=== PATIENT | female | born 1985 | race Caucasian/White ===

== ENCOUNTER 2023-10-01 12:48 | Outpatient (OUT) | payer OTHER, SELFPAY ==
--- NOTE | 2023-10-01 13:00 | MM_ITS ---
Patient Name: PRETTY ALANIZ MR#: [id number] : 1985 Exam Date: 10/01/2023 Ordering Doctor: Non-Staff Physician RADIOLOGY REPORT PROCEDURE: MM TOMOSYNTHESIS SCREENING BI COMPARISON: None. INDICATIONS: Screening Calculator Name NCI Breast Cancer Risk Assessment Tool 5 Year Breast Cancer Risk 0.50% Lifetime Breast Cancer Risk 9.00% Personal Breast Cancer No Personal Ovarian Cancer No Treatments None Family Cancers Mother with uterine cancer at age 55; Grandfather-maternal with colon cancer at age 70. LOCATION: [facility] BREAST COMPOSITION: Scattered areas fibroglandular density. FINDINGS: DIAGNOSTIC CATEGORY 1--NEGATIVE. Scattered benign-appearing calcifications are present. RIGHT BREAST: No significant suspicious finding. LEFT BREAST: No significant suspicious finding. RECOMMENDATIONS: ROUTINE MAMMOGRAM AND CLINICAL EVALUATION IN 12 MONTHS. PLEASE NOTE: A NORMAL MAMMOGRAM DOES NOT EXCLUDE THE POSSIBILITY OF BREAST CANCER. A CLINICALLY SUSPICIOUS PALPABLE LUMP SHOULD BE BIOPSIED. Dictated by: Jason Swan MD on 10/02/2023 at 09:19 Approved by: Jason Swan MD on 10/02/2023 at 09:21
== END 2023-10-01 12:49 | disposition home or self-care (01) ==
LOC: MAMMO 12:52
PROVIDERS: PCP Family Medicine
DX: Z12.31 Encounter for screening mammogram for malignant neoplasm of breast (principal); Z80.8 Family history of malignant neoplasm of other organs or systems; Z80.0 Family history of malignant neoplasm of digestive organs
CPT/HCPCS: 77063; 77067

== ENCOUNTER 2024-12-01 08:32 | Outpatient (OUT) | payer OTHER, SELFPAY ==
--- NOTE | 2024-12-01 08:42 | MM_ITS ---
Patient Name: PRETTY ALANIZ MR#: [id number] : 1985 Exam Date: 12/01/2024 Ordering Doctor: MRS. Laurie Mccormick NP RADIOLOGY REPORT PROCEDURE: MM TOMOSYNTHESIS SCREENING BI COMPARISON: MM TOMOSYNTHESIS SCREENING BI, 10/01/2023. INDICATIONS: Screening Calculator Name NCI Breast Cancer Risk Assessment Tool 5 Year Breast Cancer Risk 0.50% Lifetime Breast Cancer Risk 9.00% Personal Breast Cancer No Personal Ovarian Cancer No Treatments None Family Cancers Mother with uterine cancer at age 55; Grandfather-maternal with colon cancer at age 70. LOCATION: [facility] BREAST COMPOSITION: There are scattered areas of fibroglandular density. FINDINGS: DIAGNOSTIC CATEGORY 1--NEGATIVE. LEFT BREAST: No significant suspicious finding. RIGHT BREAST: No significant suspicious finding. RECOMMENDATIONS: ROUTINE MAMMOGRAM AND CLINICAL EVALUATION IN 12 MONTHS. PLEASE NOTE: A NORMAL MAMMOGRAM DOES NOT EXCLUDE THE POSSIBILITY OF BREAST CANCER. A CLINICALLY SUSPICIOUS PALPABLE LUMP SHOULD BE BIOPSIED. Dictated by: Bubba Harrington DO on 12/01/2024 at 15:39 Approved by: Bubba Harrington DO on 12/01/2024 at 15:42
== END 2024-12-01 08:33 | disposition home or self-care (01) ==
LOC: MAMMO 08:33
PROVIDERS: PCP Family Medicine; Visit Provider Nurse Practitioner Women's Health
DX: Z12.31 Encounter for screening mammogram for malignant neoplasm of breast (principal); Z80.0 Family history of malignant neoplasm of digestive organs; Z80.8 Family history of malignant neoplasm of other organs or systems
CPT/HCPCS: 77063; 77067

== ENCOUNTER 2025-07-28 06:49 | Outpatient (OUT) | payer OTHER, SELFPAY ==
--- OUTSIDE RECORDS SUMMARY | 2019-09-18 05:30 | XMS_ITS | Continuity of Care Document ---
Author Organization [facility] Address [address] [place] [address] Phone Care Team Providers Care Resaw Feeder Name Role Phone Echo López Unavailabl e Allergies, Adverse Reactions, Alerts Substance Reaction Status Criticality No Known Allergies Active No Inform ation Medications Medication Instructions Dosage Effective Dates (start - stop) Status Comments hydroxyzine HCl 25 mg tablet take 1 tablet by oral route 3 times every day as needed for itching - Active prednisone 10 mg tablet take 5 tabs QD x2days, then 4 tabs QD x2days, then 3 tabs QD x2days, then 2 tabs QD x2days, then 1 tab QD x2 days - Active Procedures Procedure Date OFFICE/OUTPATIENT VISIT, EST BX/CURETT OF CERVIX W/SCOPE OFFICE/OUTPATIENT VISIT, EST [facility] SPECIMEN HANDLING (GC/CHLAMYDIA) Aug OFFICE/OUTPATIENT VISIT, EST PREV VISIT, EST, AGE 18-39 Advance Directives Directive Yes / No Effective Date File Name No Information Encounters Encounter Description Practice Location Reason(s) For Visit Diagnoses Date Provider Providers Copied on Encounter OFFICE/OUTPATI ENT VISIT, EST [facility], [address], [place], [id number], [place] tel:[phone] ECJFS Rash (chief complaint) Body mass index (BMI) 29.0-29.9, adultRash Zarina Dodge. [address], [place], [id number], [place]. tel:[phone] [facility], [address], [place], [id number], [place] tel:[phone] [facility] No Information Justyn ISAAC Fito. [address], [place], [id number], [place]. tel:[phone] OFFICE/OUTPATI ENT VISIT, EST [facility], [address], [place], [id number], [place] tel:[phone] [facility] No Information Lamp Jodie. [address], [place], [id number], [place]. tel:[phone] OFFICE/OUTPATI ENT VISIT, EST [facility], [address], [place], [id number], [place] tel:[phone] [facility] No Information Visci DO Payton. [address], [place], [id number], [place]. tel:[phone] PREV VISIT, EST, AGE 18-39 [facility], [address], [place], [id number], [place] tel:[phone] [facility] No Information Lamp Jodie. [address], [place], [id number], [place]. tel:[phone] Family History Family Member Type Diagnosis Age At Onset Sister Problem (finding) depression Father Problem (finding) Alive and well Sister Problem (finding) Alive and well Mother Problem (finding) Alive and well Mother Problem (finding) Arthritis Brother Problem (finding) Alive and well Mother Problem (finding) malignant neoplasm of u terus Payers Payer name Insurance type Covered libertarian ID Authoriza tion(s) No Information Social History Type Description Quantity Date Captured Comments Alcohol Use Details beer Caffeine Use Details coffee 2 cups per day Tobacco Use Status Current non-smoker 20 Smoking Status Never smoker Non-Smoking Tobacco Use Details : No Details Available : No Details Available [id number] SexFemaleSexual OrientationStraight or [id number] Gender [id number] Vital Signs Date / Time: Height Weight BMI Pulse Rate Blood Pressure Temperature Respiratory Rate Body Surface Area Head Circumference Head Circ. Percentile Wt./[place]. Percentile BMI percentile Pulse Ox Inhaled Ox 10:30 AM 63.00 in 76.204 kg (168.00 lbs) 29.7 6 kg/m eter (2) 84 /min 118/78 mm[Hg] Chief Complaint And Reason For Visit From encounter dated '09/18/2019 10:30'. Rash (chief complaint). Description: The patient presents for Rash. Additional information: Patienthere for rash. Patient took Benadryl and hydrocortisone. Patient says rash started on chest and neck. Itching since Aug. New years it turned to rash. Patient says she sometimes feels foggy. No other issues at this time.Dior Laneoted above. Patient reports wearing a cheaper necklace" that her kids got her years ago when she noted the rash started. She stopped wearing the necklace, but then started wearing again over her shirt. Denies any new medication including otc, herbal. Reason For Referral Reason For Referral No Information Plan Of Treatment Date Type Action Status Goal Tdap. Due on due Goal RLP. Due on due Goal Influenza vaccine. Due on due Goal Depression screening. Due on due Goal Dietary management education , guidance, and counseling completed History Of Present Illness Encounter Date Complaint History Of Prese nt Illness Rash The patient pres ents for Rash. Additional information: Patient here for rash. Patient took Benadryl and hydrocortisone. Patient says rash started on chest and neck. Itching since Aug. New years it turned to rash. Patient says she sometimes feels foggy. No other issues at this time.Abigail Lane above. Patient reports wearing a cheaper necklace that her kids got her years ago when she noted the rash started. She stopped wearing the necklace, but then started wearing again over her shirt. Denies any new medication including otc, herbal. Functional Status Date Functional Assessmen t No Information Instructions Date Instruction Additional Infor sommer Dietary management e ducation, guidance, and counseling Related to Body mass index (BMI) 29.0-29.9, adult Giving encouragement to exercise Related to Body mass index (BMI) 29.0-29.9, adult Assessments Type Assessment Date assessment Body mass index (BMI) 29.0-29.9, adult assessment Rash impression Patient reports ongo ing/worsening rash across chestHas tried otc hydrocortisone cream, aloe lotion and benadryl with minimal reliefNo new creams, lotions, animal exposures, foodsOnly across chest, extending now up to the neck areaShe mentions a necklace that she was wearing when it first startedPrednisone taper and hydroxyzineRTC if unchanged or returns after 3 weeksPatient verbalizes understanding and agrees with treatment plan. Mental Status Date Cognitive Assessment Orientation - [place] ed to time, place, person, situation. Patient Care Teams Name Effective Dates (start - stop) Status Members No Information
--- OUTSIDE RECORDS SUMMARY | 2025-07-22 16:20 | XMS_ITS | Encounter Summary ---
Author Organization [facility] Address [address] [place] [address] Care Team Providers Care Legal Manager Name Role Phone Chucho Castle DO Primary Care Provider [phone] Laurie Mccormick NP Unavailable [phone] Reason for Referral * Consultation (Routine) - AuthorizedSpecialtyDiagnoses / ProceduresReferred By ContactReferred To ContactCardiology Diagnoses Symptomatic PVCs Palpitations Procedures MO OFFICE/OUTPATIENT [facility] 60 MINUTES Jillian Waller NP [address] [place] [address] Phone: tel: fax: Radha Arboleda MD [address] [facility] [address] [place] [address] Phone: tel: fax: Referral IDStatusReasonStart DateExpiration DateVisits RequestedVisits [id number] Specialty Services Required / Reason for Visit * ReasonCommentsFollow-up Encounter Details DateTypeDepartmentCare Team (Latest Contact Info)Elguzpvfjae09/05/2025 4:20 PM ESTOffice Visit [facility] [address] [place] [address] Jillian Waller NP [address] [place], [place] [phone] Symptomatic PVCs (Primary Dx); Palpitations; Lipid screening; Encounter for screening examination for impaired glucose regulation and diabetes mellitus; Thyroid disorder screen Social History Tobacco UseTypesPacks/DayYears UsedDateSmoking Tobacco: FormerCigarettesQuit: 01/31/2001Smokeless Tobacco: Never Tobacco Cessation:Counseling Given: Yes Alcohol UseStandard Drinks/WeekCommentsYes2 (1 standard drink = 0.6 oz pure alcohol)Humiliation, Afraid, Rape, and Kick questionnaireAnswerDate Recorded Within the last year, have you been afraid of your partner or ex-partner?No 05/22/2023Within the last year, have you been humiliated or emotionally abused in other ways by your partner or ex-partner?No05/22/2023Within the last year, have you been kicked, hit, slapped, or otherwise physically hurt by your partner or ex-partner?No05/22/2023Within the last year, have you been raped or forced to have any kind of sexual activity by your partner or ex-partner?No05/22/2023 Social Connection and Isolation PanelAnswerDate RecordedIn a typical week, how many times do you talk on the phone with family, friends, or neighbors?Once a week05/22/2023How often do you get together with friends or relatives?Once a week05/22/2023How often do you attend sabianism or anabaptism services?1 to 4 times per year05/22/2023o you belong to any clubs or organizations such as sabianism groups, unions, fraternal or athletic groups, or school groups?Yes05/22/2023How often do you attend meetings of the clubs or organizations you belong to?1 to 4 times per year05/22/2023re you , , , , never , or living with a partner?Tkgjyxd2105/22/2023UDIT-CAnswerDate RecordedQ1: How often do you have a drink containing alcohol?2-4 times a month11/05/2024Q2: How many drinks containing alcohol do you have on a typical day when you are drinking?1 or Q3: How often do you have six or more drinks on one occasion?Never11/05/2024Overall Financial Resource Strain (CARDIA)AnswerDate RecordedHow hard is it for you to pay for the very basics like food, housing, medical care, and heating?Not very hard05/22/2023HQ-2AnswerDate RecordedPatient Health Questionnaire-2 Ydyej26009/21/2024[facility] [place] [facility] - Occupational Stress QuestionnaireAnswerDate RecordedDo you feel stress - tense, restless, nervous, or anxious, or unable to sleep at night because your mind is troubled all the time - these days?To some qulmhb7005/22/2023Exercise Vital SignAnswerDate RecordedOn average, how many days per week do you engage in moderate to strenuous exercise (like a brisk walk)?5 days05/22/2023On average, how many minutes do you engage in exercise at this level?40 min05/22/2023Hunger Vital SignAnswerDate RecordedWithin the past 12 months, you worried that your food would run out before you got the money to buymore.Never true05/22/2023 Within the past 12 months, the food you bought just didn't last and you didn't have money to get more.Never true05/22/2023RAPARE - TransportationAnswerDate RecordedIn the past 12 months, has lack of transportation kept you from medical appointments or from getting medications?No05/22/2023In the past 12 months, has lack of transportation kept you from meetings, work, or from getting things needed for daily living?No05/22/2023Housing Stability Vital SignAnswerDate RecordedIn the last 12 months, was there a time when you were not able to pay the mortgage or rent on time?No05/22/2023In the last 12 months, how many places have you lived?In the last 12 months, was there a time when you did not have a steady place to sleep or slept in ashelter (including now)?No 05/22/2023CommentsNoSex and Gender InformationValueDate RecordedSex Assigned at TmjdaOqkihs32/23/2023 10:41 AM EDTLegal HebAdrzcp37/15/2023 7:17 PM EDTGender QungegobKqdlld11/23/2023 10:41 AM EDTSexual OrientationStraight 05/09/2023 10:41 AM EDTdocumented as of this encounter Last Filed Vital Signs Vital SignReadingTime TakenCommentsBlood Swfqzrkv021/6807/22/2025 4:15 PM EST Koalg845107/22/2025 4:15 PM NMFFqqdtdfermp89.5 ??C (97.7 ??F)07/22/2025 4:15 PM ESTRespiratory Rate--Oxygen Votdsintaw09%07/22/2025 4:15 PM ESTInhaled Oxygen Concentration--Qcsegw98.7 kg (178 lb)07/22/2025 4:15 PM HKGJgomxr905.5 cm (5' 2 )07/22/2025 4:15 PM ESTBody Mass Index32.56109/21/2024 4:15 PM ESTdocumented in this encounter Functional Status * Over the past 2 weeks, how often have you been bothered by any of the following problems?QuestionAnswerDate of AssessmentAuthorLittle interest or pleasure in doing thingsNot at all07/22/2025 4:20 PM Tangela Smith MA Feeling down, depressed, or hopelessNot at all07/22/2025 4:20 PM Tangela Smith MAPatient Health Questionnaire-2 Custv08809/21/2024 4:20 PM Tangela Smith MA documented as of this encounter Progress Notes * Jillian Waller NP - 07/22/2025 4:20 PM EST Images from the original note were not included. SUBJECTIVE: Sahara Pascual is a 40 y.o. female presents with chief complaint of Follow-up Pt presents to discuss her holter monitor results. States she continues to have palpitations. Not sure if it is related to anxiety. States when she tracks her palpitation she feels like it stresses her and she has more. Has limited caffiene from diet and made dietary changes without much relief. Review of Systems: Review of Systems All other systems reviewed and are negative. Current Medications: Medications Ordered Prior to Encounter[1] I have reviewed and reconciled the history and medication list with the patient today. Problem List: Problem List[2] Past Medical History: Medical History[3] Family History: Family History[4] Allergies: Allergies[5] Surgical History: Surgical History[6] Social History: Social Drivers of Health Tobacco Use: Medium Risk (07/22/2025) Patient History Smoking Tobacco Use: Former Smokeless Tobacco Use: Never Passive Exposure: Not on file Alcohol Use: Not At Risk (11/05/2024) AUDIT-C Frequency of Alcohol Consumption: 2-4 times a month Average Number of Drinks: 1 or 2 Frequency of Binge Drinking: Never Financial Resource Strain: Low Risk (05/22/2023) Overall Financial Resource Strain (CARDIA) Difficulty of Paying Living Expenses: Not very hard Food Insecurity: No Food Insecurity (05/22/2023) Hunger Vital Sign Worried About Running Out of Food in the Last Year: Never true Ran Out of Food in the Last Year: Never true Transportation Needs: No Transportation Needs (05/22/2023) PRAPARE - Transportation Lack of Transportation (Medical): No Lack of Transportation (Non-Medical): No Physical Activity: Sufficiently Active (05/22/2023) Exercise Vital Sign Days of Exercise per Week: 5 days Minutes of Exercise per Session: 40 min Stress: Stress Concern Present (05/22/2023) [place] [employer] - Occupational Stress Questionnaire Feeling of Stress : To some extent Social Connections: Moderately Integrated (05/22/2023) Social Connection and Isolation Panel Frequency of Communication with Friends and Family: Once a week Frequency of Social Gatherings with Friends and Family: Once a week Attends Jainism Services: 1 to 4 times per year Active Member of Clubs or Organizations: Yes Attends Club or Organization Meetings: 1 to 4 times per year Marital Status: Intimate Partner Violence: Not At Risk (05/22/2023) Humiliation, Afraid, Rape, and Kick questionnaire Fear of Current or Ex-Partner: No Emotionally Abused: No Physically Abused: No Sexually Abused: No Depression: Not at risk (07/22/2025) PHQ-2 PHQ-2 Score: 0 Housing Stability: Low Risk (05/22/2023) Housing Stability Vital Sign Unable to Pay for Housing in the Last Year: No Number of Places Lived in the Last Year: 1 Unstable Housing in the Last Year: No Health Literacy: Not on file OBJECTIVE: Visit Vitals BP 112/68 Pulse 71 Temp 97.7 ??F Ht 5' 2 Wt 178 lb SpO2 99% BMI 32.56 kg/m?? OB Status Having periods Smoking Status Former BSA 1.88 m?? Physical Exam Constitutional: Appearance: Normal appearance. HENT: Head: Normocephalic and atraumatic. Eyes: Extraocular Movements: Extraocular movements intact. Neck: Vascular: No carotid bruit. Cardiovascular: Rate and Rhythm: Normal rate and regular rhythm. Heart sounds: Normal heart sounds. Pulmonary: Effort: Pulmonary effort is normal. Breath sounds: Normal breath sounds. No wheezing, rhonchi or rales. Musculoskeletal: Cervical back: Neck supple. Lymphadenopathy: Cervical: No cervical adenopathy. Skin: General: Skin is warm and dry. Neurological: General: No focal deficit present. Mental Status: She is alert and oriented to person, place, and time. Psychiatric: Mood and Affect: Mood normal. Behavior: Behavior normal. Judgment: Judgment normal. No results found for this or any previous visit (from the past 4 weeks). ASSESSMENT AND PLAN: Assessment/Plan Diagnoses and all orders for this visit: Symptomatic PVCs - Lipid panel - CBC - Comprehensive metabolic panel - Tsh+free t4 - atenolol (Tenormin) 25 MG tablet; Take 1 tablet (25 mg) by mouth Daily - Ambulatory referral to Cardiology; Future Holter reviewed with pt in detail. Referral sent, pt should get a phone call within 1 week. Also can check mychart. Advised to call the office if they have not heard anything within 1 week. New meds as directed. Labs ordered and will call with the results. Palpitations - Lipid panel - CBC - Comprehensive metabolic panel - Tsh+free t4 - atenolol (Tenormin) 25 MG tablet; Take 1 tablet (25 mg) by mouth Daily - Ambulatory referral to Cardiology; Future Lipid screening - Lipid panel - CBC - Comprehensive metabolic panel - Tsh+free t4 Encounter for screening examination for impaired glucose regulation and diabetes mellitus - Lipid panel - CBC - Comprehensive metabolic panel - Tsh+free t4 Thyroid disorder screen - Tsh+free t4 [1] Current Outpatient Medications on File Prior to Visit Medication Sig Dispense Refill pantoprazole (ProtoNix) 40 MG EC tablet Take 1 tablet (40 mg) by mouth Daily Do not crush, chew, orsplit. 30 tablet 5 No current facility-administered medications on file prior to visit. [2] Patient Active Problem List Diagnosis Anxiety [3] Past Medical History: Diagnosis Date Abnormal Pap smear of cervix 08/2022 Anxiety 08/2021 Headache 04/25/23 [4] Family History Problem Relation Name Age of Onset Arthritis Mother Angela Asthma Mother Angela Rheum arthritis Mother Angela Cervical cancer Mother Angela COPD Father Ildefonso Depression Sister Isadora Arthritis Mother's Sister Guillermina Arthritis Mother's Brother Ildefonso Depression Maternal Grandmother Jossy Cancer Maternal Grandfather Richard Diabetes Paternal Grandmother Dinora [5] No Known Allergies [6] Past Surgical History: Procedure Laterality Date SECTION, LOW TRANSVERSE 11/14/03 & 06/07/06 TUBAL LIGATION 03/2007 documented in this encounter Plan of Treatment DateTypeDepartmentCare Team (Latest Contact Info)Kchkefazdqg06/25/2026 8:00 AM ESTOffice Visit [facility] [address] [address] Laurie Mccormick NP [address] [place] [address] NameTypePriorityAssociated DiagnosesOrder ScheduleLipid panelLabRoutine Symptomatic PVCs Palpitations Lipid screening Encounter for screening examination for impaired glucose regulation and diabetes mellitus Ordered: 07/22/2025BCLabRoutine Symptomatic PVCs Palpitations Lipid screening Encounter for screening examination for impaired glucose regulation and diabetes mellitus Ordered: 07/22/2025omprehensive metabolic panelLabRoutine Symptomatic PVCs Palpitations Lipid screening Encounter for screening examination for impaired glucose regulation and diabetes mellitus Ordered: 07/22/2025Tsh+free n1LzdDlmbpyd Symptomatic PVCs Palpitations Lipid screening Encounter for screening examination for impaired glucose regulation and diabetes mellitus Thyroid disorder screen Ordered: 07/22/2025NameTypePriorityAssociated DiagnosesOrder ScheduleAmbulatory referral to CardiologyOutpatient ReferralRoutine Symptomatic PVCs Palpitations Expected: 07/22/2025 (Approximate), Expires: 01/19/2026documented as of this encounter Visit Diagnoses Diagnosis Symptomatic PVCs- Primary Palpitations Lipid screening Screening for lipoid disorders Encounter for screening examination for impaired glucose regulation and diabetes mellitus Thyroid disorder screen Screening for thyroid disorder documented in this encounter Care Teams Team MemberRelationshipSpecialtyStart DateEnd Date Chucho Castle DO [address] [address] PCP - GeneralFamily Medicine01/23/23 Laurie Mccormick NP [address] [place] [id number] PCP - Medical [employer]05/18/2412documented as of this encounter
--- OUTSIDE RECORDS SUMMARY | 2025-07-28 06:54 | XMS_ITS | CCD ---
Author Organization [facility] Care Team Providers Care Casino Worker Name Role Phone Pauly Chaves Unavailable DO Charles Castle Primary Care Provider [facility] Visits, CHAPARRO Vallecillo Attending Prov ider DACIA, DR CERRATO Admitting Unavailable KARASIK, DR CERRATO Attending Unavailable KARASIK, DR CERRATO Primary Care Unavailable KARASIK, DR CERRATO Consulting Unavailable KARASIK, DR CERRATO Admitting Unavailable KARASIK, DR CERRATO Attending Unavailable KARASIK, DR CERRATO Primary Care Unavailable KARASIK, DR CERRATO Consulting Unavailable ADAM APONTE Attending Unavailable ADAM APONTE Primary Care Unavailable ADAM APONTE Admitting Unavailable Chucho Castle DO Primary Care Provider Moo Lewis DO Unavailable Laurie Turcios NP Unavailable [phone] Charles Castle DO Primary Care Provider Jillian Ziegler Attending Provider Moo Leiws DO Unavailable Charles Castle Primary Care Unavailable Jillian Winters Attending Unavailable Jillian Winters Admitting Unavailable LAURIE TURCIOS Attending Unavailable JILLIAN WINTERS Attending Unavailable JILLIAN WINTERS Attending Unavailable Medications Current Medications MedicationDrug Class(es)DatesSig (Normalized)Sig (Original)atenolol 25 mg oral tablet (2 sources)beta-Adrenergic BlockerStart: 07-22-2025 End: 93-21-3681sosi 1 tablet by mouth once dailyatenolol (Tenormin) 25 MG tablet Indications: Symptomatic PVCs , Palpitations Take 1 tablet (25 mg)by mouth Daily 30 tablet 5 07/22/2025 01/18/2026 Activeb complex vitamins capsule (3 sources) End: 65-13-9424qxum 1 capsule by mouth in the morningb complex vitamins capsule Take 1 capsule by mouth in the morning. 11/05/2024 Discontinuedtake 1 capsule by mouth in the morningb complex vitamins capsule Take 1 capsule by mouth in the morning. Activelutein 20 mg oral capsule (6 sources)Start: 65-97-6701lzyx 1 capsule by mouth every twenty-four hours Lutein 20 MG 1 capsule with a meal Orally Once a day Jun, Active End: 64-28-3890rqkm 1 tablet by mouth once dailyLutein 10 MG tablet Take 1 tablet by mouth 1 (one) time each day at the same time. 11/05/2024 Discontinued omeprazole 20 mg delayed release oral capsule (4 sources)Proton Pump InhibitorStart: 07-08-2025 End: 93-89-2796mewx 2 capsules by mouth once dailyomeprazole (PriLOSEC) [address] capsule Indications: Gastroesophageal reflux disease without esophagitis Take 2 capsules (40 mg) by mouth Daily Do not crush or chew. 60 capsule 5 07/08/2025 01/04/2026ctivepantoprazole 40 mg delayed release oral tablet (4 sources)Proton Pump InhibitorStart: 07-15-2025 End: 28-65-8906dbdr 1 tablet by mouth once dailypantoprazole (ProtoNix) 40 MG EC tablet Indications: Gastroesophageal reflux disease without esophagitis Take 1 tablet (40 mg) by mouth Daily Do not crush, chew, or split. 30 tablet 5 07/15/2025 01/11/2026 Active Problems Active Problems Problem ClassificationProblemDateDocumented DateEpisodic/ChronicAbdominal pain (3 sources)Right upper quadrant pain; Translations: [Right upper quadrant pain] EpisodicAnxiety disorders (13 sources)Anxiety; Translations: [Anxiety disorder, unspecified]Onset: 849312-42-2093XkzogppBqqgfnhe of urinary tract (1 source)Personal history of urinary calculi; Translations: [Personal history of urinary calculi]Onset: 31-54-6871WjsmycqzMtvmmxl dysrhythmias (4 sources)Multiple premature ventricular complexes; Translations: [Ventricular premature depolarization]68-38-2079RdaguptXvkzaci dysrhythmias (9 sources)Palpitations; Translations: [Palpitations]Onset: EpisodicE Codes: Place of occurrence (1 source)Other wilderness area as the place of occurrence of the external cause; Translations: [Other wilderness area as the place of occurrence of the external cause]Onset: 75-38-1373OknxdnsnT Codes: Struck by; against (1 source)Striking against or struck by other objects, initial encounter; Translations: [Striking against or struck by other objects, initial encounter] Onset: 40-17-5038TxsuywimN Codes: Unspecified (1 source)Activity, swimming; Translations: [Activity, swimming]Onset: 44-50-1912IttrmcnsHmmzxrjdsc disorders (5 sources)Gastroesophageal reflux disease without esophagitis; Translations: [Gastro-esophageal reflux disease without esophagitis]05-21-9016CzdjchsTywbaimdu and duodenitis (3 sources)Gastritis; Translations: [Unspecified chronic gastritis without bleeding]ChronicHeadache; including migraine (2 sources)Headache; including migraine; Translations: [Headache, unspecified] Onset: 63-22-4907Gmnuheafruecb and screening for infectious disease (1 source)Encounter for screening for human papillomavirus (HPV); Translations: [ENC SCREENING HUMAN PAPILLOMAVIRUS]Onset: 58-11-3783OxhphgauVzmy wounds of head; neck; and trunk (1 source)Laceration without foreign body of scalp, initial encounter; Translations: [Laceration without foreign body of scalp, initial encounter] Onset: 43-23-5589BbqzneolZgvqy aftercare (2 sources)Encounter for follow-up examination after completed treatment for conditions other than malignant neoplasm; Translations: [Follow-up examination Z09]Onset: 07-12-2021 Resolved: 85-17-9753FnqcbbuvSktca disorders of stomach and duodenum (3 sources)Indigestion; Translations: [Functional dyspepsia]EpisodicOther screening for suspected conditions (not mental disorders or infectious disease) (14 sources)Encounter for screening for malignant neoplasm of cervix; Translations: [Breast neoplasm screening status]Onset: 14-17-7232EnnzinjlXdmuj upper respiratory infections (3 sources)Streptococcal sore throat; Translations: [Strep throat]Episodic Residual codes; unclassified (1 source)Other specified health statusEpisodicSprains and strains (1 source)Strain of muscle, fascia and tendon at neck level, initial encounter; Translations: [Strain of muscle, fascia and tendon at neck level, initial encounter]Onset: 85-40-0058Fzgnuszr Past or Other Problems Problem ClassificationProblemDateDocumented DateEpisodic/ChronicCancer of cervix (1 source)Atypical squamous cells of undetermined significance on cytologic smear of cervix (ASC-US); Translations: [ASC US ON CYTOLOGIC SMEAR OF CERVIX] Onset: 05-51-7875Fpqzwcad Results Test NameValueInterpretationReference RangeFacilityTHINPREP TIS PAP AND HPV mRNA E6/E7 WITH REFLEX TO HPV 16,18/45on 87-49-2695VUCYEGSE INFORMATION:NormalQuest DiagnosticsComment on above:Result Comment: None givenPerformed By: #### [id number] #### [facility] [address], [address] [place], [place] [id number] Public Service Director: Nilay Joel MDCOMMENTNormalQuest DiagnosticsComment on above:Result Comment: EXPLANATORY NOTE: The Pap is a screening test for cervical cancer. It is not a diagnostic test and is subject to false negative and false positive results. It is most reliable when a satisfactory sample, regularly obtained, is submitted with relevant clinical findings and history, and when the Pap result is evaluated along with historic and current clinical information.Performed By: #### [id number] #### [facility] [address], [address] [place] [phone] Public Service Director: Nilay Joel MDCOMMENT:NormalQuest DiagnosticsComment on above:Result Comment: This Pap test has been evaluated with computer assisted technology.Performed By: #### [id number] #### [facility] [address], [address] [place] [phone] Public Service Director: Nilay Joel MDCYTOTECHNOLOGIST:Normal[facility] Comment on above:Result Comment: BLM, CT(ASCP) CT Screening Location: X-[address] [place], [place] [address]Performed By: #### 33578 #### [facility] [place] [address] Public Service Director: Nilay Joel MDHPIsa mRNA E6/E7Not detectedNormalNot Detected Quest DiagnosticsComment on above:Result Comment: Methodology: Director Of Scientific Research- Mediated Amplification This assay detects E6/E7 viral messenger RNA (mRNA) from 14 high-risk HPV types (16,18,31,33,35,39,45,51,52,56,58,59,66,68). Cervical sources are required for HPV testing. If a vaginal source from a patient who has had a total hysterectomy with removal of cervix was submitted, please contact the testing laboratory for alternative testing options. For additional information, please refer to http://education.[employer]/faq/CLM988c5 (This link if provided for information/ educational purposes only.)Performed By: #### [id number] #### [facility] [place] [address] Public Service Director: Nilay Joel MDINTERPRETATION/RESULT:Normal[facility] Comment on above:Result Comment: Cytology Results: Negative for intraepithelial lesion or malignancy.Performed By: #### [id number] #### [facility] [place] [address] Public Service Director: Nilay Joel MDLMP:NormalQuest DiagnosticsComment on above: Result Comment: None givenPerformed By: #### [id number] #### [facility] [place] [address] Public Service Director: Nilay TORRES. BX:NormalQuest DiagnosticsComment on above:Result Comment: None givenPerformed By: #### 15537 #### [facility] [place] [address] Public Service Director: Nilay TORRES. PAP:NormalQuest DiagnosticsComment on above:Result Comment: None givenPerformed By: #### [id number] #### [facility] [address], [address] [place] [address] Public Service Director: Nilay SAXENA PUZZLE ASSEMBLER:NormalQuest DiagnosticsComment on above:Result Comment: DMK, CT(ASCP) CT screening location: [address] [place] [address].Performed By: #### 67587 #### [facility] [address], [address] [place] [address] Public Service Director: Nilay Joel MDSOURCE:NormalQuest DiagnosticsComment on above:Result Comment: None givenPerformed By: #### 36600 #### [facility] [address], [address] [place] [address] Public Service Director: Nilay Joel MDSTATEMENT OF ADEQUACY:[facility] Comment on above:Result Comment: Satisfactory for evaluation. Endocervical/transformation zone component present.Performed By: #### [id number] #### [facility] [address], [address] [place] [address] Public Service Director: Nilay Joel [facility] TOMOSYNTHESIS SCREENING BIon 43-78-1611[place] [address] Mammography Report Signed Patient: PRETTY ALANIZ MR#: [id number] : 1985 Acct:[id number] Age/Sex: 38 / F ADM Date: 10/01/23 Loc: MAMMO Attending Dr: Non-Staff Physician Jeana Ordering Physician: PhysicianElfegoStaff Jeana Results: Date of Service: 10/01/23 Follow Up: Procedure(s): MM tomosynthesis screening BI Accession Number(s): [id number] cc: Don CASTLE ; PhysicianElfegoStaff Jeana Patient Name: PRETTY ALANIZ MR#: [id number] : 1985 Exam Date: 10/01/2023 Ordering Doctor: Non-Staff Physician RADIOLOGY REPORT PROCEDURE: MM TOMOSYNTHESIS SCREENING BI COMPARISON: None. INDICATIONS: Screening Calculator Name NCI Breast Cancer Risk Assessment Tool 5 Year Breast Cancer Risk 0.50% Lifetime Breast Cancer Risk 9.00% Personal Breast Cancer No Personal Ovarian Cancer No Treatments None Family Cancers Mother with uterine cancer at age 55; Grandfather-maternal with colon cancer at age 70. LOCATION: [facility] BREAST COMPOSITION: Scattered areas fibroglandular density. FINDINGS: DIAGNOSTIC CATEGORY 1--NEGATIVE. Scattered benign-appearing calcifications are present. RIGHT BREAST: No significant suspicious finding. LEFT BREAST: No significant suspicious finding. RECOMMENDATIONS: ROUTINE MAMMOGRAM AND CLINICAL EVALUATION IN 12 MONTHS. PLEASE NOTE: A NORMAL MAMMOGRAM DOES NOT EXCLUDE THE POSSIBILITY OF BREAST CANCER. A CLINICALLY SUSPICIOUS PALPABLE LUMP SHOULD BE BIOPSIED. Dictated by: Jason Swan MD on 10/02/2023 at 09:19 Approved by: Jason Swan MD on 10/02/2023 at 09:21 Dictated By: Jason Swan M.D. Signed By: 10/02/23921 DD/ 0 TD/TT: Insurance Sales Supervisor:TBHRadiology, Radiologist, - 10/02/2023 [place] [address] Mammography Report Signed Patient: PRETTY ALANIZ MR#: [id number] : 1985 Acct:[id number] Age/Sex: 38 / F ADM Date: 10/01/23 Loc: MAMMO Attending Dr: Gini-Staff Physician [place] Ordering Physician: Antonino Bland M.D. Results: Date of Service: 10/01/23 Follow Up: Procedure(s): MM tomosynthesis screening BI Accession Number(s): [id number] cc: Don CASTLE ; Antonino Bland M.D. Patient Name: PRETTY ALANIZ MR#: [id number] : 1985 Exam Date: 10/01/2023 Ordering Doctor: Non-Staff Physician RADIOLOGY REPORT PROCEDURE: MM TOMOSYNTHESIS SCREENING BI COMPARISON: None. INDICATIONS: Screening Calculator Name NCI Breast Cancer Risk Assessment Tool 5 Year Breast Cancer Risk 0.50% Lifetime Breast Cancer Risk 9.00% Personal Breast Cancer No Personal Ovarian Cancer No Treatments None Family Cancers Mother with uterine cancer at age 55; Grandfather-maternal with colon cancer at age 70. LOCATION: [facility] BREAST COMPOSITION: Scattered areas fibroglandular density. FINDINGS: DIAGNOSTIC CATEGORY 1--NEGATIVE. Scattered benign-appearing calcifications are present. RIGHT BREAST: No significant suspicious finding. LEFT BREAST: No significant suspicious finding. RECOMMENDATIONS: ROUTINE MAMMOGRAM AND CLINICAL EVALUATION IN 12 MONTHS. PLEASE NOTE: A NORMAL MAMMOGRAM DOES NOT EXCLUDE THE POSSIBILITY OF BREAST CANCER. A CLINICALLY SUSPICIOUS PALPABLE LUMP SHOULD BE BIOPSIED. Dictated by: Jason Swan MD on 10/02/2023 at 09:19 Approved by: Jason Swan MD on 10/02/2023 at 09:21 Dictated By: Jason Swan M.D. Signed By: 10/02/23921 DD/ 0 TD/TT: Insurance Sales Supervisor: [facility]linRadiology Study observation (narrative)[facility] TOMOSYNTHESIS SCREENING BIOrdered By: Radiologist Radiology on 21-69-9389WUJJ [place] Work Phone: [employer] REPORTon [id number]EW BEH[facility]AL [facility] EM[facility] RO[facility] REPORT NAME ACCOUNT SEX AGE ADMIT DISCHARGE PT MED. RECORD# NUMBER DATE DATE TYPE CORBIN, [id number] F 37 05/05/23 05/05/23 Halie Mckeon [id number] ROOM: ER DATE OF : 1985 DICTATING PHYSICIAN: Jason Darden TIME SEEN: 1820 hours. CHIEF COMPLAINT/HISTORY OF PRESENT ILLNESS: This is a 37-year-old white female who hit her head on a log in the [place] when she was jumping off a rope swing. They had been canoeing down the river, and they stopped to jump off the rope swing. That's when she struck her head. She did complain of a mild headache, but she denied any loss of consciousness, denies any nausea or vomiting, denies any blurred or double vision. She is not on any blood thinners. She does have a family doctor up in [place], [place]. She could not remember his name. PAST MEDICAL HISTORY: Previous kidney stones. Last tetanus was greater than five years ago. PAST SURGICAL HISTORY: Previous surgery for a kidney stone, , tonsillectomy and adenoidectomy. ALLERGIES: She is not allergic to any medications. SOCIAL HISTORY: She is not a smoker. She does admit to occasional alcohol use, denies any illicit drugs, lives at home with family. She lives in [place], [place]. She is visiting here from out of town. REVIEW OF SYSTEMS: She denies any chest pain, shortness of breath, cough, sputum, wheezing, abdominal pain, nausea, vomiting, diarrhea, constipation, melena, hematochezia. She does complain of a mild diffuse generalized headache, rates it as a 4 on a severity scale 1-10, describes it as throbbing in nature. She denies any weakness or unsteady gait. She does complain of some mild posterior neck pain but denies any back pain or joint pain, skin rash, but does complain of a laceration to the occipital region of the scalp. Further review of systems is negative. PHYSICAL EXAMINATION: Vital signs: Temperature 98.1, pulse 64, respirations 18, blood pressure 156/82, pulse oximetry 98% on room air, weight 160 pounds. The patient is alert and oriented x3, presently appears in no acute distress, is pleasant and cooperative. She does have the odor of alcohol about her, but she is not slurring her words and is pleasant, follows commands. HEENT: I do note a 3 cm linear laceration to the posterior occipital region of the scalp. Wound was explored. No foreign body noted. Page 1 of 3 PRETTY ALANIZ Emergency Room Report S PRETTY ALANIZ S : 1985 No bony involvement noted. She was palpably tender over the laceration site. I did not note any palpable bony deformity or depression, but examination was somewhat suboptimal, due to the swelling around the laceration. Presently has good hemostasis. Pupils are equal and reactive to light. Red reflex is intact bilaterally. Extraocular muscles are intact. No conjunctival injection. Ears: TMs are intact bilaterally. No hemotympanum. Nose exhibits no rhinorrhea or epistaxis. Mouth: Mucous membranes are moist, teeth intact. Neck: Supple with trachea midline. No JVD or lymphadenopathy. I did note some mild diffuse posterior cervical tenderness, but no palpable midline deformity. Lungs: Clear to auscultation bilaterally. No adventitious sounds are noted. No accessory muscle use noted. Cardiovascular: Heart rate and rhythm is regular without murmur. Abdomen: Soft, nontender with normoactive bowel sounds x4 quadrants. No guarding, rigidity, no abdominal distention. Back exhibits no midline or paraspinal region tenderness, no increased paraspinal muscle rigidity. Negative Haim sign. Extremities: No edema or cyanosis. Peripheral pulses are intact. No motor or sensory deficits are noted. Hand meter maintenance person is strong and symmetric. Skin: Warm and dry, no diaphoresis or rash. Neurologic: The patient is alert and oriented x4. No motor or sensory deficits are noted. Normal speech, no conversational dyspnea, no slurred speech, no facial droop. DIAGNOSTIC DATA: CT scan of the brain was read by our radiologist here as negative. It did not show any evidence of any intracranial hemorrhage or skull fracture. There was no edema, mass or inappropriate atrophy. Ventricles, cisterns, sulci are appropriate for age. No hydrocephalus. CT scan of the cervical spine was read by our radiologist as no fracture or subluxation. EMERGENCY DEPARTMENT COURSE AND TREATMENT: The patient was given a tetanus shot here today to update her tetanus status. I did give her a dose of Keflex 500 mg p.o. Here. DIAGNOSES: 1. A 3 cm posterior occipital region scalp laceration, closed with nine skin kaylen. 2. Cervical strain. PLAN/DISPOSITION: I am going to send her home with two Keflex 500 mg tablets. She is to take one every 8 hours starting tomorrow morning, and that will give her some time to get the prescription filled sometime tomorrow. I did place her on Keflex 500 mg 1 p.o. q.8 hours x10 days, dispen (more content not included)...[facility] RE[facility] NAME ACCOUNT SEX AGE ADMIT DISCHARGE PT MED. RECORD# NUMBER DATE DATE TYPE CORBIN [id number] F 37 05/05/23 05/05/23 Halie Mckeon [id number] ROOM: ER DATE OF : 1985 DICTATING PHYSICIAN: Jason Darden ADDENDUM: The patient's physician is Dr. Chucho Castle, [address] [place] [address], [place] [address]. Dictated By: Jason Darden DO 05/05/23 20:05 JOB #: [id number] Transcribed By: ew 05/05/23 21:46 Electronically signed by: E-Sign: Dr. Jason Darden D.O. 05/15/23 05:33 Page 1 of 1 PRETTY ALANIZ Emergency Room Report [facility] B[facility] W/O CONTRASTon [id number] BRAIN W/O [place]ASTCharles [place] [address] Patient: PRETTY ALANIZ Phone#: : 1985 Age: 37 Gender: F Pt. Type: ER Account: [id number] Location: [facility] Ordering: ADAM APONTE Exam Date: 05/05/2023/18:37 Family Phys: Charge Code: [id number] Physician: [place] Order #: [id number] Dose#: 52.3 mGy PROCEDURE: CT BRAIN WITHOUT CONTRAST COMPARISON: None. INDICATIONS: Trauma. TECHNIQUE: CT images were obtained without contrast material. All CT scans at this facility use dose modulation, iterative reconstruction, and/or weight based dosing when appropriate to reduce radiation dose to as low as reasonably achievable. IV CONTRAST: No IV contrast used,0ml TOTAL DOSE: 52.3 CTDIvol(mGy) FINDINGS: CEREBRUM: No edema, hemorrhage, mass, or inappropriate atrophy. CEREBELLUM: No edema, hemorrhage, mass, or inappropriate atrophy. BRAINSTEM: No edema, hemorrhage, mass, or inappropriate atrophy. CSF SPACES: Ventricles, cisterns, and sulci are appropriate for age. No hydrocephalus, subarachnoid hemorrhage, or mass. SKULL: No mass or other significant visible lesion. SINUSES: Mild mucosal thickening in the left sphenoid sinus. ORBITS: Limited views are unremarkable. OTHER: Irregularity in the soft tissues of the occipital scalp with soft tissue air, consistent with laceration. CONCLUSION: 1. No appreciable acute intracranial abnormality 2. Occipital scalp laceration Dictated by: Allison Nickerson MD on 05/05/2023 at 18:56 Approved by: Allison Nickerson MD on 05/05/2023 at 19:00[facility] HospitalCT CERVICAL W/O CONTRASTon 28-24-6426KF CERVICAL W/O CONTRASTCharles Ville [address] Patient: PRETTY ALANIZ Phone#: : 1985 Age: 37 Gender: F Pt. Type: ER Account: [id number] Location: 052 Ordering: ADAM APONTE Exam Date: 05/05/2023/18:37 Family Phys: Charge Code: [id number] Physician: [place] Order #: [id number] Dose#: 11.9 mGy PROCEDURE: CT CERVICAL WITHOUT CONTRAST COMPARISON: None. INDICATIONS: Trauma. TECHNIQUE: Multi-planar CT images were created without intravenous contrast. All CT scans at this facility use dose modulation, iterative reconstruction, and/or weight-based dosing when appropriate to reduce radiation dose to as low as reasonably achievable. IV CONTRAST: No IV contrast used,0ml TOTAL DOSE: 11.9 CTDIvol(mGy) FINDINGS: CRANIOCERVICAL AREA: Normal foramen magnum with no Chiari malformation. PARASPINAL AREA: Normal with no visible mass. BONES: Straightening of the normal cervical lordosis, this may be positional or due to muscle spasm. Vertebral bodies are maintained in height and alignment. The dens is intact. The lateral masses are symmetric. No acute fracture or subluxation. CERVICAL DISC LEVELS: C2-C3 to C7-T1: No significant disc/facet abnormality, spinal stenosis, or foraminal stenosis. CONCLUSION: 1. No acute osseous abnormality 2. Straightening of the normal cervical lordosis, this may be positional or due to muscle spasm. Dictated by: Allison Nickerson MD on 05/05/2023 at 19:00 Approved by: Allison Nickerson MD on 05/05/2023 at 19:04[facility] HospitalBlood hemoglobin measurement (mass/volume)Ordered By: Pauly Chaves on 68-70-2291Fmkfclzvyu (Bld) [Mass/Vol]13.8 g/dL11.8-15.4FMount Carmel Health SystemBody fluid albumin measurement (mass/volume)Ordered By: Pauly Chaves on 38-35-1890Qpujrse (Body fld) [Mass/Vol]3.6 g/dL3.2-5.5FMount Carmel Health SystemCholesterol in LDL Calc [Mass/Vol]Ordered By: Pauly Chaves on 60-58-6929Tqzjhjbfral in LDL [Mass/Vol]105 mg/dL0-100Mer[facility] Allen HospitalComment on above:LDL ATP III CLASSIFICATIONLDL less than 100 mg/dL OptimalLDL 100-129 mg/dL Near or above qpslxlpSHV801-194 mg/dL Borderline highLDL 160-189 mg/dL HighLDL greater than 189 mg/dL Very high Cholesterol in VLDL Calc [Mass/Vol]Ordered By: Pauly Chaves on 06-26-2022 Cholesterol in VLDL [Mass/Vol]8 mg/dLMercy Health Allen Hospital Comprehensive Metabolic Panelon 48-78-6060Cblwryr [Mass/Vol]3.306516 g/dLNormal 3.2-5.5 g/dLArtusLabs [employer] Other aLT [Catalytic activity/Vol]13 U/LHsmydg20-02 U/[employer] Other bilirubin [Mass/Vol]0.1050996 mg/dLNormal0.3-1.2 mg/dL [employer] Other calcium [Mass/Vol]9.3132610 mg/dLNormal8.2-10.2 mg/dL [employer] Other cO2 [Moles/Vol]23.66244755 mmol/ZCqrapl33.0-30.0 mmol/[employer] Other creatinine [Mass/Vol]0.18039665 mg/dLNormal0.44-1.03 mg/dLUnsilo Other potassium [Moles/Vol]4.43011478 mmol/LNormal3.5-5.1 mmol/[employer] Other Protein [Mass/Vol]6.964314 g/dLNormal6.1-7.9 g/dLNorth [employer] Other comprehensive Metabolic Panel> 60[employer] Other comprehensive Metabolic Panel2.7 g/dLNort [employer] Other comprehensive Metabolic PanelOrdered By: Pauly Chaves on 21-86-3508Oqudiin/Globulin [Mass ratio]1.3 {ratio}[facility] HospitalALP [Catalytic activity/Vol]50 U/C86-94XxrdyttrtMercy Health Allen Hospital AST [Catalytic activity/Vol]15 U/X00-86UgvgtggckMercy Health Allen HospitalChloride [Moles/Vol]105 mmol/F37-166IdkcrdnorRegency Hospital Cleveland Westodium [Moles/Vol] 137 mmol/M144-553CgiarizwnMercy Health Allen HospitalUrea nitrogen [Mass/Vol]9 mg/dL9-23[facility] HospitalCreatinine and Glomerular filtration rate.predicted panel (S/P/Bld)Ordered By: Pauly Chaves on 56-75-0418Beyrobxxgl [Mass/Vol]0.78 mg/dL0.44-1.03[facility] HospitalErythrocyte distribution width Auto (RBC) [Ratio]Ordered By: Pauly Chaves on 06-26-2022 Erythrocyte distribution width (RBC) [Ratio]13.1 %11.9-15.3FMount Carmel Health SystemEstimated glomerular filtration rate (GFR) non- Ordered By: Pauly Chaves on 22-55-7763WIK/1.73 sq M.predicted among non-blacks MDRD (S/P/Bld) [Vol rate/Area]> 60 mL/MinMercy Health Allen Hospital Globulin Calc (S) [Mass/Vol]Ordered By: Pauly Chaves on 89-67-0651Xobcnvhv (S) [Mass/Vol]2.7 g/dLMercy Health Allen HospitalHematocrit Auto (Bld) [Volume fraction]Ordered By: Pauly Chaves on 71-13-6941Cnrijrreib (Bld) [Volume fraction]40.8 %34.0-46.4FMount Carmel Health SystemLaboratory - Chemistry and Chemistry - challengeOrdered By: Pauly Chaves on 17-24-6532Wekcinb [Mass/Vol]86 mg/sB63-503NiazlrphoMercy Health Allen HospitalLipid Panelon 43-38-3168Jcdreyeqjiu in LDL Elph Qn105 mg/dLHigh0-100 mg/dLNosaint joseph health center [employer] Other Lipid Panel43 mg/fBKkgghk04-641 mg/dLNosaint joseph health center [employer] Other Lipid Panel8 mg/dLNosaint joseph health center [employer] Other Lipid PanelOrdered By: Pauly Chaves on 06-26-2022 Cholesterol [Mass/Vol]164 mg/qN973-941AlrprnymcMercy Health Allen HospitalComment on above:Chol less than 200 mg/dl low riskChol 201-239 mg/dl borderline riskChol 240 mg/dl and greater high riskCholesterol in HDL [Mass/Vol]50 mg/dL35-85 [facility] HospitalComment on above:HDL CHOL ATP-III CLASSIFICATION Cardiovascular RiskHDL > or equal to 60 mg/dL LOWHDL < 40 mg/dL HIGHCholesterol.total/Cholesterol in HDL [Mass ratio]3.3 {ratio}<5.0[facility] Auto (RBC) [Entitic mass]Ordered By: Pauly Chaves on 21-00-1286EAN (RBC) [Entitic mass]31.7 pg24.7-34.3FMemorial Health System Auto (RBC) [Mass/Vol]Ordered By: Pauly Chaves on 15-61-9232SXUD (RBC) [Mass/Vol]33.9 g/dL32.0-35.0[facility] HospitalV Auto (RBC) [Entitic vol]Ordered By: Pauly Chaves on 01-19-0748FKK (RBC) [Entitic vol]93.6 lN32-582PwjdkbppjMercy Health Allen HospitalNo Panel InformationOrdered By: Pauly Chaves on 98-37-3655Hmlkuhhvk GFR ()> 60 mL/Min [facility] HospitalComment on above:GFR estimated reference range: According to KDOQI guidelines, <60 ml/min/1.73m2 is sufficient todiagnose a patient with chronic kidney disease.Pharmacy Creatinine Clearance (ChemN/A [facility] Allen HospitalPlatelet mean volume Auto (Bld) [Entitic vol] Ordered By: Pauly Chaves on 21-09-1695Ibxilhaq mean volume (Bld) [Entitic vol] 11.3 fL6.3-10.7FMount Carmel Health SystemPlatelets Auto (Bld) [#/Vol] Ordered By: Pauly Chaves on 91-20-1838Jkhpuvwjn (Bld) [#/Vol]212 10*3/fD805-304 [facility] HospitalProtein [Mass/volume] in Serum or PlasmaOrdered By: Pauly Chaves on 44-64-2702Tpnynpz [Mass/Vol]6.3 g/dL6.1-7.9[facility] HospitalRBC Auto (Bld) [#/Vol]Ordered By: Pauly Chaves on 28-70-2638JGF (Bld) [#/Vol]4.36 10*6/uL3.60-5.00[facility] Cleveland Westerum or plasma alanine aminotransferase measurement without P-5'-P (enzymatic activiOrdered By: Pauly Chaves on 38-05-7248CEV No additional P-5'-P [Catalytic activity/Vol]13 U/G38-91UboahfvxiRegency Hospital Cleveland Westerum or plasma anion gap determinationOrdered By: Pauly Chaves on 05-99-0287Cnsza gap [Moles/Vol]12.9 mmol/L6.0-15.0[facility] Westerum or plasma calcium measurement (mass/volume)Ordered By: Pauly Chaves on 83-17-4595Nxpcalr [Mass/Vol]9.4 mg/dL8.2-10.2FKettering Health Behavioral Medical Centererum or plasma potassium measurement (moles/volume)Ordered By: Pauly Chaves on 06-26-2022 Potassium [Moles/Vol]4.3 mmol/L3.5-5.1FKettering Health Behavioral Medical Centererum or plasma total bilirubin measurement (mass/volume)Ordered By: Pauly Chaves on 37-67-6613Focbofnyd [Mass/Vol]0.8 mg/dL0.3-1.2FMount Carmel Health System Serum or plasma total carbon dioxide measurement (moles/volume)Ordered By: Pauly Chaves on 98-29-7183VY5 [Moles/Vol]23.4 mmol/L22.0-30.0[facility] DL <= 0.005 mIU/L QnOrdered By: Pauly Chaves on 06-26-2022 TSH Qn1.63 m[IU]/L0.45-5.33[facility] HospitalThyroid Stimulating Hormoneon 52-44-5716MYG Qn1.16139614233 m[IU]/LNormal0.45-5.33 u[iU]/[facility] [employer] Other Triglyceride [Mass/volume] in Serum or PlasmaOrdered By: Pauly Chaves on 09-80-8661Toletrgnqdxd [Mass/Vol]43 mg/kO93-637XutxygstxMercy Health Allen HospitalComment on above:TRIG ATP III CLASSIFICATIONTRIG less than 150 mg/dL NormalTRIG 150-199 mg/dL Borderline highTRIG 200-500 mg/dL High TRIG greater than 500 mg/dL Very highStandard traceable to the Center for Disease Conrtrol and Prevention (CDC) test method.WBC Auto (Bld) [#/Vol]Ordered By: Pauly Chaves on 92-32-7442UTN (Bld) [#/Vol]6.3 10*3/uL3.8-11.6FMount Carmel Health SystemPAP ACOG PANEL 2: 30 to 65on 01-02-2022..NormalThe [facility] HospitalComment on above:Result Comment: Performed at: WBPerformed By: #### [id number] #### [facility] [address] [place] [address] Dr. Yesy Alcazar Gdln ACOG Yztinkd60-97PtwmlwZztEast Ohio Regional HospitalComment on above:Performed By: #### [id number] #### [facility] [address] [address] [address] Yesy McgarryDIAGNOSIS:CommentMemorial Health System [facility] on above: Result Comment: NEGATIVE FOR INTRAEPITHELIAL LESION OR MALIGNANCY. Performed at: WBPerformed By: #### [id number] #### [facility] [address] [place] [address] Dr. Yesy McgarryHPV AptimaNegativeNormalNegativeThe [facility] on above:Result Comment: This nucleic acid amplification test detects fourteen high-risk HPV types (16,18,31,33,35,39,45,51,52,56,58,59,66,68) without differentiation. Performed at: =GPerformed By: #### [id number] #### [facility] [address] [place] [address] Dr. Yesy McgarryMethodology:CommentMemorial Health System Marietta Memorial Hospital on above: Result Comment: This liquid based ThinPrep(R) pap test was screened with the use of an image guided system. Performed at: WBPerformed By: #### [id number] #### [place] [address] [address] Yesy McgarryNote:CommentMemorial Health System Marietta Memorial Hospital on above:Result Comment: The Pap smear is a screening test designed to aid in the detection of premalignant and malignant conditions of the uterine cervix. It is not a diagnostic procedure and should not be used as the sole means of detecting cervical cancer. Both false-positive and false-negative reports do occur. . Performed at: WBPerformed By: #### [id number] #### [facility] [address] [place] [address] Dr. Yesy McgarryPerformed by:CommentNoUniversity Hospitals Geauga Medical Center on above: Result Comment: Guillermina Snyder, Clinical Quality Manager (ASCP) Performed at: WBPerformed By: #### [id number] #### [facility] [address] [place] [address] Dr. Yesy McgarrySpecimen adequacy:CommentMemorial Health System Marietta Memorial Hospital on above:Result Comment: Satisfactory for evaluation. Endocervical and/or squamous metaplastic cells (endocervical component) are present. Performed at: WBPerformed By: #### [id number] #### [facility] [address] [place] [address] Dr. Yesy Mcgarry Vital Signs Date TimeVital SignValuePerforming YisykoxeyQcmdkwzj56-25-4521 16:15-0500Body pyiyvn148.5 cmJillian Winters GRADUATING MACHINE OPERATOR Work Phone: [phone])[facility] [place], [place] [address]Yxumtlhsju85-91-6376 16:15-0500Body mass index (BMI) [Ratio]32.56 kg/l4Mubgs Sridhar GRADUATING MACHINE OPERATOR Work Phone: 1([phone])[address] [place] [address]-05-2025 16:15-0500Body temperature 97.7 [degF]Jillian Winters GRADUATING MACHINE OPERATOR Work Phone: 1(174)[address] [place] [address]-05-2025 16:15-0500Body leldit94.74 kgJillian Winters GRADUATING MACHINE OPERATOR Work Phone: 1(448)[facility] [place], [place] [address]Lhcpqhovls47-25-5074 16:15-0500Diastolic blood nvqnxomf15 mm[Hg]Jillian Geprimitivo GRADUATING MACHINE OPERATOR Work Phone: 1(556)[facility] [place], [place] [address]Cyjdydrbkl23-66-3455 16:15-0500Heart rate71 /min Jillian Sridhar GRADUATING MACHINE OPERATOR Work Phone: 1(241)[facility] [place] [address]-05-2025 16:15-3915NuQ4% (BldA) [Mass fraction]99 %Jillian Winters GRADUATING MACHINE OPERATOR Work Phone: 1([phone])[facility] HospitalPrairie Ridge HealthNOWashington University Medical CenterLccvmhdkya26-34-2284 16:15-0500Systolic blood evsuouzo672 mm[Hg]Jillian Sridhar GRADUATING MACHINE OPERATOR Work Phone: 1(363)[facility] HospitalPrairie Ridge HealthNOWashington University Medical CenterYppenhadpq00-09-9392 15:33-0400Body pauuvo940.5 cmJillian Winters GRADUATING MACHINE OPERATOR Work Phone: [phone] HospitalNOWashington University Medical CenterYkxkitnzeo08-45-7205 15:33-0400Body mass index (BMI) [Ratio]32.92 kg/x5Loxtg Sridhar GRADUATING MACHINE OPERATOR Work Phone: [phone]-[facility] HealthNOWashington University Medical CenterAtetizuuvg13-86-6011 15:33-0400Body temperature 98.29 [degF]Jillianrose marie Winters GRADUATING MACHINE OPERATOR Work Phone: 1(635)[facility] HospitalPrairie Ridge HealthNOWashington University Medical CenterNmqfyzelym46-60-3129 15:33-0400Body widybb96.65 kgJillian Winters GRADUATING MACHINE OPERATOR Work Phone: noWashington University Medical CenterFcidyvxjbk07-61-6217 15:33-0400Diastolic blood mm[Hg]Jillian Winters GRADUATING MACHINE OPERATOR Work Phone: noWashington University Medical CenterIzymogzwvx40-23-8128 15:33-0400Heart rate70 /min Jillian Winters GRADUATING MACHINE OPERATOR Work Phone: noMT HealthcareComment on above:apbqnrc30-00-9750 15:33-4280GiV5% (BldA) [Mass fraction]99 %Jillian Winters GRADUATING MACHINE OPERATOR Work Phone: noWashington University Medical CenterKzswoozltb40-49-2808 15:33-0400Systolic blood rnywkolg189 mm[Hg]Jillian Geprimitivo GRADUATING MACHINE OPERATOR Work Phone: noWashington University Medical CenterLryfbdrubo67-85-0703 11:48-0500Body zdejfw259.5 cmStyler Turcios GRADUATING MACHINE OPERATOR Work Phone: [facility] JoplinKkubatvumn55-47-4000 11:48-0500Body mass index (BMI) [Ratio]33.47 kg/f6Gvvdvcrbkcandace Mahanman GRADUATING MACHINE OPERATOR Work Phone: [facility]oplinQpgqtoahxu03-82-4990 11:48-0500Body .01 kgStcandace Mahanman GRADUATING MACHINE OPERATOR Work Phone: [facility] JoplinMjvqdazkkb96-55-0699 11:48-0500Diastolic blood qypokuyg93 mm[Hg]Laurieestela Turcios GRADUATING MACHINE OPERATOR Work Phone: [facility] JoplinVvxhkquvkg38-58-2172 11:48-0500Systolic blood yuaqpvay620 mm[Hg]Laurie Turcios GRADUATING MACHINE OPERATOR Work Phone: [facility] JoplinKrkoerdeht08-38-6812 09:45-0400Body yaptyk984.02 Guerda Chaves Other [employer] Other 10-10-2022 09:45-0400Body mass index (BMI) [Ratio] 28.69 kg/g1JdhmsuPauly Chaves Other [employer] Other 10-10-2022 09:45-0400Body rtreptgzsem41.1 [degF]Pauly Chaves Other [employer] Other 10-10-2022 09:45-0400Body oykmww26.48 kgPamela Chaves Other [employer] Other 10-10-2022 09:45-0400Diastolic blood ryyqjnwx63 mm[Hg] Pauly Chaves Other [employer] Other 10-10-2022 09:45-0400Respiratory rate16 /minPamela Chaves Other [employer] Other 10-10-2022 09:45-0400Systolic blood suxzrymh064 mm[Hg] Pauly Chaves Other [employer] Other Encounters Encounter DateEncounter TypeCare ProviderFacilityStart: 07-22-2025 End: 08-05-6463Dloofz outpatient visit 25 minutesJillian Winters NP Work Phone: [facility] 230Comment on above: Symptomatic PVCs (Primary Dx); Palpitations; Lipid screening; Encounter for screening examination for impaired glucose regulation and diabetes mellitus; Thyroid disorder screenStart: 07-22-2025 End: 03-25-6867rrhuyytdqgMBAEE L LUBYNot AvailableStart: 07-22-2025 End: 00-77-0921Ybxasb Teressa Winters GRADUATING MACHINE OPERATOR Work Phone: [facility] 230Start: 07-22-2025 End: 58-43-7067Qlwjfl Teressa Winters GRADUATING MACHINE OPERATOR Work Phone: [facility] 230Start: 07-17-2025 End: 57-75-1357Tjaplzgdx encounterJillian Winters GRADUATING MACHINE OPERATOR Work Phone: [facility] 230Start: 07-15-2025 End: 56-97-9607Vhijqnqnn encounterJillian Winters GRADUATING MACHINE OPERATOR Work Phone: [facility] 230Comment on above: Medication QuestionStart: 07-12-2025 End: 72-73-2300Qlrztca encounter procedureJillian Winters YJM-U-Cvwvrrowlnzmjnmeks Work Phone: Start: 07-12-2025 End: 99-40-5365guklprqfmmW. Scotty Corrine Work Phone: [phone]-XtagsnirqpydmaehtvQdmlc: 07-10-2025 End: 87-97-5534Wlzodoiyj encounterJillian Winters GRADUATING MACHINE OPERATOR Work Phone: [facility] 230Comment on above: Prior AuthorizationStart: 07-08-2025 End: 27-95-6077ppyqefyingDQCCP L LUBYNot AvailableStart: 07-08-2025 End: 72-28-4663Sscsuu outpatient visit 25 minutesJillian Winters GRADUATING MACHINE OPERATOR Work Phone: [facility] 230Comment on above: Gastroesophageal reflux disease without esophagitis (Primary Dx); Heart palpitationsStart: 07-08-2025 End: 13-33-2056Zfvths flowsAna Winters GRADUATING MACHINE OPERATOR Work Phone: [facility] 230Start: 07-08-2025 End: 78-00-8082Skwcfd flowsAna Winters GRADUATING MACHINE OPERATOR Work Phone: [facility] 230Start: 11-05-2024 End: 60-73-8779Ysfsyk flowsVinod Turcios GRADUATING MACHINE OPERATOR Work Phone: [facility] NB OBStart: 11-05-2024 End: 86-33-2887Lvrvnq flowsVinod Turcios GRADUATING MACHINE OPERATOR Work Phone: noms NB OBStart: 11-05-2024 End: 22-45-5525oevlxnmhfaYATFTFGUV F HOFFMANNchang AvailableStart: 11-05-2024 End: 96-64-2918Vigfjac encounter statusStcandace Turcios GRADUATING MACHINE OPERATOR Work Phone: noms HealthcareStart: 11-05-2024 End: 41-65-4701Wyehtsdi preventive med est patient 40-64yrsStepglennyhyacinth Schaefer Turcios GRADUATING MACHINE OPERATOR Work Phone: noms NB OBComment on above:Encounter for gynecological examination without abnormal finding (Primary Dx); Other screening mammogram; Screening for malignant neoplasm of cervixStart: 10-02-2023 End: 87-72-9286Cnljqqksc Result EncounterGeneric External Data ProviderNOMS External Department UnsolicitedStart: 10-02-2023 End: 06-21-4979Ckbtzoazn Result EncounterGeneric External Data ProviderNOMS External Department UnsolicitedStart: 05-05-2023 End: 19-61-0066Cekjghtea department patient visitUniversity Hospitals Beachwood Medical Centertart: 09-13-2022 End: 78-96-7071yyvrfzzcvxIN BLOSSOM PEDERSONFacility:D7Npylx: 07-10-2022(Dago H f/u) Corporate Health F/UPamela [facility] Servicestart: 07-10-2022 End: 36-34-7216umosnzjdanSljovj Chaves Other [employer] Limiteds[facility] [employer] Other start: 06-26-2022(Dago Hlth) Corporate Health Visit Pauly [facility] CenterStart: 11-39-4415Txanevoxq for general adult medical examination without abnormal findingsBox Butte General Hospitaltart: 06-26-2022 End: 60-08-5366mnftcpypsvLAElva Caslte Work Phone: [employer] Other start: 06-26-2022 End: 76-05-8248Enezilht Femi DonJac Scotty Castle Work Phone: [facility] [address] Start: 09-85-4519Woxcvpnrx for cervical smear to confirm findings of recent normal smear following initial abnormal smearDR BLOSSOM [facility] HospitalStart: 12-27-2021 End: 30-24-0028fhzbgjnglyYX BLOSSOM PEDERSONFacility:P3Fdeab: 12-27-2021 End: 94-92-1921Wsudxscyl for cervical smear to confirm findings of recent normal smear following initial abnormal smearDR BLOSSOM PEDERSONFacility:M1Fjdbr: 07-12-2021(Dago H f/u) [facility] F/UPamela [facility] Procedures DateProcedureProcedure DetailPerforming ClinicianStart: 05-73-8169Eunojxizflc Jillian Winters NP Work Phone: Start: 66-64-6691Wyhcxkwrddt observation [Identifier] in Cervix by Cyto Janneth Winters NP Work Phone: Start: 24-05-0035IX TOMOSYNTHESIS SCREENING BIGeneric External Data ProviderStart: 05-29-7643LyyydeznjyrTcbydmfhb Hoffman NP Work Phone: start: 06-88-7863Qadcheqqmhv observation [Identifier] in Cervix by Cyto Onel Turcios NP Work Phone: Plan of Treatment DateCare ActivityDetailAuthorStart: 00-27-2328Csvhkkark for malignant neoplasm of cervixNOMS HealthcareStart: 74-08-8746Ffqtywgvv for malignant neoplasm of cervixNOMS HealthcareStart: 97-47-3795Rdqfynydy for malignant neoplasm of breast MammogramNOMS HealthcareStart: 11-11-2025 End: 27-25-8560Piralqv encounter btkcixrlf09/25/2026 8:00 AM EST Office Visit DIOR CANDELARIA [address] [address] Laurie Turcios NP [address] [place] [address] DIOR Gray OBGYNStart: 07-22-2025 End: 22-73-0242Tansyyc encounter fkhqagtvy61/05/2025 4:20 PM EST Office Visit Count includes the [facility] [address] [place] [address] Jillian Winters NP [address] [place] [address] ArrivedCount includes the [facility] 230 Comment on above:ArrivedStart: 07-08-2025 End: 44-79-3020Avdclz monitor studyHolter monitor Imaging Routine Heart palpitations Expected: 07/08/2025 (Approximate), Expires: 07/08/2026[facility] Work Phone: Comment on above:Expected: 07/08/2025 (Approximate), Expires: 07/08/2026Start: 59-83-7894PKMTE-19 Vaccine ( season)COVID- 19 Vaccine ()NOMS HealthcareStart: 00-46-4616Dunzzibpo vaccinationInfluenza Vaccine (#1)[facility] HealthcareStart: 11-05-2024 End: 51-13-4249KC Breast - bilateral ScreeningBilateral screening mammogram Imaging Routine Other screening mammogram Expected: 11/05/2024, Expires: 01/03/2026[facility] Work Phone: comment on above:Expected: 11/05/2024, Expires: 01/03/2026Start: 94-97-3800Pxwhtodbm for malignant neoplasm of breastMammogram N[facility] HealthcareStart: 03-62-5239Mxilxymau vaccinationInfluenza Vaccine (#1)[facility] HealthcareStart: 04-51-9968KDeJ/Tdap/Td Vaccines (3 - Td or Tdap)DTaP/Tdap/Td Vaccines (3 - Td or Tdap)[facility] HealthcareStart: 73-01-4103Ckyoqjblh for malignant neoplasm of cervixHPV/CotestNOMS HealthcareStart: 43-46-9234VWV Vaccines (1 - 3-dose SCDM series)HPV Vaccines (1 - 3-dose SCDM series)[facility] HealthcareStart: 58-94-0269Ugvehyvin B Vaccines (1 of 3 - 19+ 3-dose series)Hepatitis B Vaccines (1 of 3 - 19+ 3-dose series)[facility] JoplinStart: 33-18-7023Mistbty of varicella vaccinationVaricella Vaccines (1 of 2 - 13+ 2-dose series)[facility]oplinStart: 39-96-6184AAD Vaccines (1 of 1 - Standard series)MMR Vaccines (1 of 1 - Standard series)[facility] panel - Blood by Automated countCBC Lab Routine Symptomatic PVCs Palpitations Lipid screening Encounter for screening examination for impaired glucose regulation and diabetes mellitus Ordered: 07/22/2025[facility] HealthcareComment on above:Ordered: 07/22/2025omprehensive metabolic 2000 panel - Serum or PlasmaComprehensive metabolic panel Lab Routine Symptomatic PVCs Palpitations Lipid screening Encounter for screening examination for impaired glucose regulation and diabetes mellitus Ordered: 07/22/2025[facility] HealthcareComment on above:Ordered: 07/22/2025Lipid 1996 panel - Serum or PlasmaLipid panel Lab Routine Symptomatic PVCs Palpitations Lipid screening Encounter for screening examination for impaired glucose regulation and diabetes mellitus Ordered: 07/22/2025[facility] Work Phone: Comment on above:Ordered: 07/22/2025THINPREP TIS PAP AND HPV MRNA E6/E7 WITH REFLEX TO HPV 16,18/45THINPREP TIS PAP AND HPV MRNA E6/E7 WITH REFLEX TO HPV 16,18/45 Pathology and Cytology Routine Screening for malignant neoplasm of cervix Encounter for gynecological examination without abnormal finding Ordered: 11/05/2024[facility] HealthcareComment on above:Ordered: 11/05/2024Thyrotropin [Units/volume] in Serum or PlasmaTsh+free t4 Lab Routine Symptomatic PVCs Palpitations Lipid screening Encounter for screening examin ation for impaired glucose regulation and diabetes mellitus Thyroid disorder screen Ordered: 07/22/2025[facility] HealthcareComment on above:Ordered: 07/22/2025 Immunizations Immunization DateImmunizationNotesCare PmzftwvmUikhtvgi80-97-6251oqncfhh toxoid, reduced diphtheria toxoid, and acellular pertussis vaccine, adsorbedStepglennyhyacinth Mahanman GRADUATING MACHINE OPERATOR Work Phone: [facility] JoplinPvcqwocivq51-17-8972Dgbprz Purple Cap SARS-CoV-2 VaccinationJerene Winters GRADUATING MACHINE OPERATOR Work Phone: NOWashington University Medical CenterWghdwfklzh20-85-8864Velrlh Purple Cap SARS-CoV-2 VaccinationJerene Winters GRADUATING MACHINE OPERATOR Work Phone: NOWashington [facility] Medical CenterKphinvtvwt90-79-4294rslywbnto, seasonal, injectablePamela Chaves Other [facility]10-12-2021influenza virus vaccine, unspecified formulationJerene Winters GRADUATING MACHINE OPERATOR Work Phone: noWashington University Medical CenterZtcboxxjzo98-48-3444bsofcet toxoid, reduced diphtheria toxoid, and acellular pertussis vaccine, adsorbedPamela Chaves Other [employer] Other Payers DatePayer CategoryPayerPolicy [id number]-lii [id number] Health [id number] [id number] [id number] 2.1.952443.3.57[id number] 2.1.794684.3.57[id number] 2.1.165570.3.57[id number] 2.1.368184.3.57[id number] 2840.1.999869.3.579.2.[id number] 2.840.1.565990.19 [id number]-[id number] Social History DateTypeDetailFacilityStart: 05-22-2023 End: 01-28-3828Hnf Assigned At [facility] WestNOMT HealthcareStart: 80-00-7966Qmb Assigned At [facility] Hospitaltart: 05-09-2023 End: 71-49-9093Kjevpth smoking status NHISEx-smokerNOMS Healthcare End: 87-28-6623Wfbcznk of tobacco useCurrent smokerNOMS Healthcare End: 78-33-6829Yskceln of tobacco useCigarette SmokerNOMS HealthcareStart: 05-09-2023 End: 12-48-4875Tunpncs use and exposureSmokeless tobacco non-userNOMS Healthcare Start: 09-25-2023 End: 37-68-3539Vlnschflt beverage intakeCurrent drinker of alcohol (finding)[facility] HealthcareStart: 05-22-2023 End: 93-62-9782Hiusuzqlw beverage intakeNOMS HealthcareWithin the last year, have you been afraid of your partner or ex-partner?NoNOMS HealthcareDo you belong to any clubs or organizations such as yazdanism groups, unions, fraternal or athletic groups, or school groups?YesNOMS HealthcareAre you now , , , , never or living with a partner?MarriedNOMS HealthcareHow often to you have a drink containing alcohol?2-4 times a month [facility] HealthcareHow many standard drinks containing alcohol do you have on a typical day?1 or 2NOMS HealthcareHow often do you have 6 or more drinks on 1 occasion?Less than monthlyNOMS HealthcareHow hard is it for you to pay for the very basics like food, housing, medical care, and heatingNot very hardNOMS HealthcareDo you feel stress - tense, restless, nervous, or anxious, or unable to sleep at night because yourmind is troubled all the time - these days [OSQ]To some extentNOMS Healthcare(I/We) worried whether (my/our) food would run out before (I/we) got money to buy more.Never trueNOMT HealthcareStart: 71-17-5754Im the past 12 months, has lack of transportation kept you from medical appointments or from getting medications?NoNOMS HealthcareStart: 05-09-2023 Gender identityIdentifies as female gender (finding)[facility] HealthcareStart: 40-99-5124Apaehs orientationHeterosexual (finding)NOMS HealthcareHow often do you have 6 or more drinks on 1 occasion?NeverNOMT HealthcareStart: 08-18-2016 Tobacco smoking status NHISNever smoked tobacco (finding)[facility] (finding)[facility] Functional Status Fdfj[id number] Health Questionnaire 2 item (PHQ- 2) [Reported][id number] Health Questionnaire 2 item (PHQ- 2) [Reported][id number] Health Questionnaire 2 item (PHQ- 2) [Reported][facility]oplinQnvktvkhqw86-12-0408Ybawb score [AUDIT-C]2 11/05/2024 11:53 AM EST [facility] Clinical Notes 07-12-2021 to 07-22-2025 Note Date & [id number] History of Present illness Narrative* Jillian Winters, NIURKA - 07/22/2025 4:20 PM EST Images from the original note were not included. SUBJECTIVE: Pretty Alaniz is a 40 y.o. female presents with [...] Surgical History[6] Social History: Social Drivers of SnipSnap Tobacco Use: Medium Risk (07/22/2025) Patient History [...] 40 min Stress: Stress Concern Present (05/22/2023) [employer] - Occupational Stress Questionnaire Feeling of Stress : To some extent Social Connections: Moderately Integrated (05/22/2023) Social Connection and Isolation Panel Frequency of Communication with Friends and Family: Once a week Frequency of Social Gatherings with Friends and Family: Once a week Attends Catholic Services: 1 to 4 times per year [...] Vitals BP 112/68 Pulse 71 Temp 97.7 F Ht 5' 2 Wt 178 lb SpO2 99% BMI 32.56 kg/m OB Status Having periods Smoking Status Former BSA 1.88 m Physical Exam Constitutional: Appearance: Normal appearance. HENT: [...] 06/07/06 TUBAL LIGATION 03/2007 documented in this encounterMercy Hospital JoplinAkbqxfelxl68-44-1735 Telephone encounter Note* Telephone Encounter - Sugey Bryant - 07/17/2025 11:05 AM EDT Elizabeth from [facility] called because patient has been calling and is scared that there is something wrong and wants to know if Jillian has received any results from the holter monitor. She is asking forus to contact patient because she needs for the provider to help with possibly giving her some information to calm her fears. Please advise. [id number] Miscellaneous Notes* Telephone Encounter - Sugey Bryant - 07/17/2025 11:05 AM EDT Elizabeth from [facility] called because patient has been calling and is scared that there is something wrong and wants to know if Jillian has received any results from the holter monitor. She is asking forus to contact patient because she needs for the provider to help with possibly giving her some information to calm her fears. Please advise. documented in this encounterMercy Hospital [id number] Telephone encounter Note* Telephone Encounter - Sandie Evan - 07/15/2025 3:11 PM EDT Pt called started taking prilosec 07/08 BID. Pt reports she is still having heartburn just about every time she eats. She would like to know if she should continue with the prilosec or try something else. Please call with recommendation. [id number] Miscellaneous Notes* Telephone Encounter - Sandie Evan - 07/15/2025 3:11 PM EDT Pt called started taking prilosec 07/08 BID. Pt reports she is still having heartburn just about every time she eats. She would like to know if she should continue with the prilosec or try something else. Please call with recommendation. documented in this encounterMercy Hospital [id number] Telephone encounter Note* Telephone Encounter - Mendy Maya - 07/10/2025 1:56 PM EDT Dia from [facility] called stating they can not do a 24 to 48 hr Holter Monitor, they can only do it for 3 -14 days, Dia stated Jillian could change it on the order if she would like andif she only wants a 24 hr one she would need it be sent somewhere. If you need to discuss this withher you can call her at [phone]. Or it could get changed and faxed over to [phone]. [facility] [id number] Miscellaneous Notes* Telephone Encounter - Mendy Maya - 07/10/2025 1:56 PM EDT Dia from [facility] called stating they can not do a 24 to 48 hr Holter Monitor, they can only do it for 3 -14 days, Dia stated Jillian could change it on the order if she would like andif she only wants a 24 hr one she would need it be sent somewhere. If you need to discuss this withher you can call her at [phone]. Or it could get changed and faxed over to [phone]. documented in this encounterMercy Hospital [id number] History of Present illness Narrative* Jillian Luda Jooprimitivo, GRADUATING MACHINE OPERATOR - 07/08/2025 3:20 PM EDT Images from the original note were not included. SUBJECTIVE: Pretty Alaniz is a 39 y.o. female presents with chief complaint of Palpitations Sunday evening was camping, sitting around and started with palpitations. Describes as feeling like something is opening and shutting in the center of the chest. Does not last long. This has beenoff and on since Sunday. Had drank excessive alcohol use for her on Sunday night, 6 or 7 drinks. Had called the insurance nurses line and they advised her to avoid caffeine and she has tried to do this today. So far today has noticed this sensation about 7 times. Today. Was worse last night aftereating chocolate. This lasts seconds and the resolves. Denies chest pain or dizziness. Does admit to having a headache today but believes this is due to lack of caffeine (insurance nurse told her to avoid caffeine). 3 years ago she was seen at [facility] for similar symptoms and all testing at that time was normal. Notices this sensation more when at rest. Does admit to frequent heartburn for years, does not take anything regularly for this and tries to avoid foods that trigger this. Does not feel that heartburn has been worse than normal lately. Review of Systems: Review of Systems All other systems reviewed and are negative. Current Medications: Medications Ordered Prior to Encounter[1] I have reviewed and reconciled the history and medication list with the patient today. Problem List: Problem List[2] Past Medical History: Medical History[3] Family History: Family History[4] Allergies: Allergies[5] Surgical History: Surgical History[6] Social History: Social Drivers of Health Tobacco Use: Medium Risk (07/08/2025) Patient History Smoking Tobacco Use: Former Smokeless [...] 40 min Stress: Stress Concern Present (05/22/2023) [employer] - Occupational Stress Questionnaire Feeling of Stress : To some extent Social Connections: Moderately Integrated (05/22/2023) Social Connection and Isolation Panel Frequency of Communication with Friends and Family: Once a week Frequency of Social Gatherings with Friends and Family: Once a week Attends Catholic Services: 1 to 4 times per year Active Member of Clubs or Organizations: Yes Attends Club or Organization Meetings: 1 to 4 times per year Marital Status: Intimate Partner Violence: Not At Risk (05/22/2023) Humiliation, Afraid, Rape, and Kick questionnaire Fear of Current or Ex-Partner: No Emotionally Abused: No Physically Abused: No Sexually Abused: No Depression: Not at risk (07/08/2025) PHQ-2 PHQ-2 Score: 0 Housing Stability: Low Risk (05/22/2023) Housing Stability Vital Sign Unable to Pay for Housing in the Last Year: No Number of Places Lived in the Last Year: 1 Unstable Housing in the Last Year: No Health Literacy: Not on file OBJECTIVE: Visit Vitals BP 116/78 Pulse 70 Comment: regular Temp 98.3 F Ht 5' 2 Wt 180 lb SpO2 99% BMI 32.92 kg/m OB Status Having periods Smoking Status Former BSA 1.89 m Physical Exam Constitutional: Appearance: Normal appearance. HENT: Head: Normocephalic and atraumatic. Mouth/Throat: Mouth: Mucous membranes are moist. Pharynx: Oropharynx is clear. Eyes: Extraocular Movements: Extraocular movements intact. Neck: Vascular: No carotid bruit. Cardiovascular: Rate and Rhythm: Normal rate and regular rhythm. Heart sounds: Normal heart sounds. Pulmonary: Effort: Pulmonary effort is normal. Breath sounds: Normal breath sounds. No wheezing, rhonchi or rales. Abdominal: General: Bowel sounds are normal. Palpations: Abdomen is soft. Tenderness: There is no abdominal tenderness. Musculoskeletal: Cervical back: Neck supple. Lymphadenopathy: Cervical: [...] Diagnoses and all orders for this visit: Gastroesophageal reflux disease without esophagitis - omeprazole (PriLOSEC) [address] capsule; Take 2 capsules (40 mg) by mouth Daily Do not crush or chew. Pt advised on high acid food triggers such as caffeine products, fruits high in acid, spicy foods and to follow bland diet management measures for acute flare. Lifestyle changes include weight loss for overweight people; head-of-bed elevation; and avoidance of late-night eating if nocturnal symptoms are present. Take medication as prescribed. 6-8 week course of meds, call or RTO if symptoms return after med completion. Heart palpitations - Holter monitor; Future Testing to be completed, will call with results. Advised ER for worsening or persistent symptoms No follow-ups on file. [1] No current outpatient medications on file prior to visit. No current facility-administered medications on file prior [...] 06/07/06 TUBAL LIGATION 03/2007 documented in this encounterMercy Hospital [id number] History of Present illness Narrative* Laurie Turcios NP - 11/05/2024 11:40 AM EST Name: Pretty Alaniz Date/Time of Service:11/05/2024 12:07 PM :1985 Age: 39 y.o. SUBJECTIVE: History of Present Illness rPetty Alaniz is a 39 y.o. here for annual exam. She is not having any problems. Last pap 09-25-23 ASCUS, HPV neg. Prior paps 09-12-22 ASCUS, HPV neg, 09-06-21 ASCUS, HPV +. Last mammogram 10-02-23, birads 1. Denies breast problems. Tubal for contraceptions. Periods are monthly. Past Medical History: Diagnosis Date Abnormal Pap smear of cervix 08/2022 Anxiety 08/2021 Headache 04/25/23 Review of Systems All others negative except those mentioned in HPI. Past Medical / Surgical History Past Medical History: Diagnosis Date Abnormal Pap smear of cervix 08/2022 Anxiety 08/2021 Headache 04/25/23 Past Surgical History: Procedure Laterality Date SECTION, LOW TRANSVERSE 11/14/03 & 06/07/06 TUBAL LIGATION 03/2007 Family History Family History Problem Relation Name Age of Onset Arthritis Mother Angela Asthma Mother Angela Rheum arthritis Mother Angela Cervical cancer Mother Angela COPD Father Ildefonso Depression Sister Isadora Arthritis Mother's Sister Guillermina Arthritis Mother's Brother Ildefonso Depression Maternal Grandmother Jossy Cancer Maternal Grandfather Richard Diabetes Paternal Grandmother Dinora Social History reports that she quit smoking about 23 years ago. Her smoking use included cigarettes. She has never used smokeless tobacco. She reports current alcohol use of about 2.0 standard drinks of alcohol per week. She reports that she does not use drugs. MEDICATIONS: Current Outpatient Medications on File Prior to Visit Medication Sig Dispense Refill [DISCONTINUED] b complex vitamins capsule Take 1 capsule by mouth in the morning. [DISCONTINUED] Lutein 10 MG tablet Take 1 tablet by mouth 1 (one) time each day at the same time. No current facility-administered medications on file prior to visit. No Known Allergies Review of Systems PHYSICAL EXAM: Vitals: 11/05/24 1148 BP: 124/80 Body mass index is 33.47 kg/m . Physical Exam Constitutional: Appearance: Normal appearance. Genitourinary: Normal external female genitalia. Normal vaginal mucosa. Cervix absent of lesions. No CMT. Uterus normal size, mobile. Right and left adnexa are non-tender, no masses. Breasts: No nipple discharge, skin changes, lumps, masses. Right: Normal. Left: Normal. HENT: Head: Normocephalic. Eyes: Extraocular Movements: Extraocular movements intact. Conjunctiva/sclera: Conjunctivae normal. Pulmonary: Effort: Pulmonary effort is normal. Neurological: Mental Status: She is alert and oriented to person, place, and time. Skin: General: Skin is warm and dry. Psychiatric: Mood and Affect: Mood normal. Behavior: Behavior normal. ASSESSMENT / PLAN Pap obtained today. Recommend monthly self breast exams and yearly mammograms. Diagnosis Plan 1. Encounter for gynecological examination without abnormal finding THINPREP TIS PAP AND HPV MRNA E6/E7 WITH REFLEX TO HPV 16,18/45 2. Other screening mammogram Bilateral screening mammogram Bilateral screening mammogram 3. Screening for malignant neoplasm of cervix THINPREP TIS PAP AND HPV MRNA E6/E7 WITH REFLEX TO HPV 16,18/45 Follow up in about 1 year (around 11/05/2025) for Annual exam. documented in this encounterMercy Hospital [id number] Evaluation note* Encounter Date Diagnosis Assessment Notes Treatment Notes Treatment Clinical Notes Jun, Follow-up examination (ICD-10 - Z09) Personalized health advice was given to the patient with health education on preventative counseling services and programs aimed at reducing identified risk factors. Discussed improved self-management and community-based lifestyle interventions to reduce health risks and promote self-management andwellness. A plan for routine annual screenings discussed. Routine lab studies were reviewed with the patient with emphasis on any abnormal findings. These labs are available in the chart for review and a copy was provided to the patient to share with their PCP. Continue regular follow-up with PCP. [facility] Other 10-10-2022 Evaluation note* Encounter Date Diagnosis Assessment Notes Treatment Notes Treatment Clinical Notes Jun, Wellness examination (ICD-10 - Z 00.00) Personalized health advice was given to the patient with health education on preventative counseling services and programs aimed at reducing identified risk factors. Discussed improved self-management and community-based lifestyle interventions to reduce health risks and promote self-management andwellness. Counseling was provided here today - specifically in regard to any positively answered questions as noted above. We will review labs that were drawn today at follow-up visit in 2 weeks. Jun,articipant in health and wellness plan (ICD-10 - Z78.9)Continue regular follow-up with PCP and women's health [facility] Other 10-26-2021 Evaluation note* Encounter Date Diagnosis Assessment Notes Treatment Notes Treatment Clinical Notes Jun, Follow-up examination (ICD-10 - Z09) Personalized health advice was given to the patient with health education on preventative counseling services and programs aimed at reducing identified risk factors. Discussed improved self-management and community-based lifestyle interventions to reduce health risks and promote self-management andwellness. A plan for routine annual screenings discussed. Routine lab studies were reviewed with the patient with emphasis on any abnormal findings. These labs are available in the chart for review and a copy was provided to the patient to share with their PCP. Continue regular follow-up with PCP. [facility] Other Evaluation noteNo assessment information available [facility] Work Phone: Evaluation note* Diagnosis Encounter for gynecological examination without abnormal finding- Primary Other screening mammogram Screening for malignant neoplasm of cervix Screening for malignant neoplasm of the cervix documented in this encounter [facility] HealthcareEvaluation [facility]* Diagnosis Gastroesophageal reflux disease without esophagitis- Primary Esophageal reflux Heart palpitations Palpitations documented in this encounter [facility]* Diagnosis Symptomatic PVCs- Primary Palpitations Lipid screening Screening for lipoid disorders Encounter for screening examination for impaired glucose regulation and diabetes mellitus Thyroid disorder screen Screening for thyroid disorder documented in this encounter [facility] HealthcareHistory general Narrative - Reported* Type Description Date Surgical History C SECTION X2 Hospitalization Historysee above [facility] Other History general Narrative - Reported* Type Description Date Surgical History C SECTION X2 2004 and 2006 Hospitalization History see above [facility] Other reason for referral (narrative)No reason for referral information availableCh[facility] Work Phone: Chief Complaint and Reason for Visit Chief Complaint wellness Chief Complaint Admit Date r00.2 July 12, 2025 1 0:18am Advance Directives No Advanced Directives Records Found Advance Directive Response Recorded Date/ Time Advance Directives No May 8:59am Summary Purpose Family History No Family History Records Found Relationship Condition Age at Onset Recorded Date/T andrea grandparent Malignant neoplasm Unknown DeceasedUnknownmotherMalignant neoplasmUnknown Additional Source Comments REASON FOR VISIT (unrecogniz ed section and content) ReasonCommentsPalpitationsReasonOnset DateCommentsPrior Oluvnncwtpyad22/24/2025 ReasonOnset DateCommentsMedication Kbhrkxvx07/29/2025ReasonCommentsFollow-up Care Teams (unrecognized sec tion and content) Team Status: Inactive Member Role Status Dates Charles Castle DO Primary Care Provider Active Pauly Chaves-Well Visits , APRNAttending ProviderActive Team Status: Active Member Role Status Dates Charles Castle DO Primary Care Provider Active Team MemberRelationshipSpecialtyStart DateEnd Date Chucho Castle DO [address] [place] [address] PCP - GeneralFamily Medicine01/23/23 Moo Lewis DO [address] [place] [address] PCP - Medical [place] [employer]02/16/1412Team MemberRelationshipSpecialty Start DateEnd Date Chucho Castle DO [address] [place] [address] PCP - GeneralFamily Medicine01/23/23 Moo Lewis DO [address] [place] [address] PCP - Medical [place] [employer]02/16/1412Team MemberRelationshipSpecialty Start DateEnd Date Chucho Castle, DO [address] [place] [address] [facility] - [facility]/23 Laurie Turcios, GRADUATING MACHINE OPERATOR [address] [place] [address] PCP - Medical [place] [employer]05/18/2412Te MemberRelationshipSpecialty Start DateEnd Date Chucho Castle, DO [address] [place] [address] PCP - GeneralFami Medicine01/23/23 Laurie Turcios, GRADUATING MACHINE OPERATOR [address] [place] [address] PCP - Medical [place] [employer]05/18/2412Te MemberRelationshipSpecialty Start DateEnd Date Chucho Castle, DO [address] [place] [address] PCP - GeneralFami Medicine01/23/23 Laurie Turcios, GRADUATING MACHINE OPERATOR [address] [place] [address] PCP - Medical [place] [employer]05/18/2412 Team Status: Active Member Role/Relationship Status Dates Charles Castle DO Primary Care Provider Active Team Status: Inactive Member Role/Relationship Status Dates Charles Castle DO Primary Care Provider Active Start: July 12, 2025 End: July 12, 2025Jillian Winters NP-CAttending ProviderActiveStart: July 12, 2025 End: July 12, 2025Team MemberRelationshipSpecialtyStart DateEnd Date Chucho Castle DO [address] [place] [address] [facility]01/23/23 Laurie Turcios, GRADUATING MACHINE OPERATOR [address] [place] [address] PCP - Medical [place] [employer]05/18/2412Team MemberRelationshipSpecialty Start DateEnd Date Chucho Castle DO [address] [place] [address] PCP - [facility] Medicine01/23/23 Moo Lewis DO [address] [place] [address] PCP - Medical [place] [employer] Laurie Turcios, GRADUATING MACHINE OPERATOR [address] [place] [address] PCP - Medical [place] [employer]05/18/2412Team MemberRelationshipSpecialty Start DateEnd Date Chucho Castle DO [address] [place] [address] PCP - GeneralFamily Medicine01/23/23 Laurie Turcios NP [address] [place] [address] PCP - Medical [place] [employer]05/18/2412Team MemberRelationshipSpecialty Start DateEnd Date Chucho Castle DO [address] [place] [address] PCP - GeneralFami Medicine01/23/23 Laurie Turcios NP [address] [place] [address] PCP - Medical [place] [employer]05/18/2412 Goals (unrecognized section and content) Goals may be documented in a n alternate section INFORMATION SOURCE (unrecogn ized section and content) DATE CREATED AUTHOR 09/15/2022 [facility] DATE CREATED AUTHOR AUTHOR'S ORGANIZ ATION 05/15/2023 [facility] DATE CREATED AUTHOR AUTHOR'S ORGANIZ ATION 11/09/2024 [facility] DATE CREATED AUTHOR AUTHOR'S ORGANIZ ATION 07/23/2025 [facility] DATE CREATED AUTHOR AUTHOR'S ORGANIZ ATION 07/24/2025 [facility] FOR RECORDS PERTAINING TO PATIENTS WHO ARE OR HAVE BEEN ENROLLED IN A CHEMICAL DEPENDENCY/SUBSTANCEABUSE PROGRAM, SOME INFORMATION MAY BE OMITTED. This clinical summary was aggregated from multiple sources. Caution should be exercised in using it in the provision of clinical care. This summary normalizes information from multiple sources, and as a consequence, information in this document may materially change the coding, format and clinical context of patient data. In addition, data may be omitted in some cases. CLINICAL DECISIONS SHOULD BE BASED ON THE PRIMARY CLINICAL RECORDS. [employer] [facility]. provides no warranty or guarantee of the accuracy or completeness of information in this document.
--- OUTSIDE RECORDS SUMMARY | 2025-07-28 06:55 | XMS_ITS | Continuity of Care Document ---
Author Organization [facility] Address [address] [place] [address] Phone Care Team Providers Care Fig Washer Name Role Phone Charles Castle DO Primary Care Provider Jillian Waller NP-C Attending Provider [phone] Care Teams Patient Care Team Team Status: Active Member Role/Relationship Status Dates Charles Castle DO Primary Care Provider Active Visit Care Team Team Status: Inactive Member Role/Relationship Status Dates Charles Castle DO Primary Care Provider Active Start: July 12, 2025 End: July 12, 2025Jillian Waller NP-CAttending ProviderActiveStart: July 12, 2025 End: July 12, 2025 Chief Complaint and Reason for Visit Chief Complaint Admit Date r00.2 July 12, 2025 1 0:18am Allergies, Adverse Reactions, Alerts Allergen Type Severity Reaction Last Updated Verified Status No Known Drug Allergies Allergy Unknown July 10, 2022 4:00pmYesActive Social History Smoking Status Status Start Date End Date Date of Observa tion Never smoked tobacco (finding) August 18, 2016 1:00pm Observation Status Observation Response Date of Response Legal Sex Female (finding) Sex [facility] Family History Relationship Condition Age at Onset Recorded Date/T andrea grandparent Malignant neoplasm Unknown DeceasedUnknownmotherMalignant neoplasmUnknown Immunizations Immunization Event Date Not Given Reason Dose Number Hot Stamp Operator Lot Number Reason(s) Given Vaccine Information Statement (VIS) Detail Administration Location Tetanus, Diphtheria, Pertussis (Tdap) July 162019 Trivalent Influenza VaccineOct2020 Advance Directives Advance Directive Response Recorded Date/ Time Advance Directives No May 8:59am Insurance Providers Guarantor Sahara Pascual Address [address] [facility] [address]Rvssqfc Info.Home Phone: Payer Group Member ID Coverage Type Subscriber Relationship to Subscriber Effective Date Expiration Date O Id: [id number] S Patotodd Id: [id number] [address] [place] [address] Home Phone: Email: [email or web address] Active 25% Thru [address] [id number] Work Phone: [phone] [place], [place] [id number] S Patotodd Id: [id number] [address] [place] [id number] Home Phone: Email: [email or web address] Encounters Encounter Location(s) Arrival/Admit Date Discharge/Departure Date Discharge/Departure Disposition Provider(s) Departed Clinical -Electrodiag nostics July 12, 2025 10:18am July 12, 2025 10:19am Discharged to home care or self care (routine discharge) MARILY Clarke
--- OUTSIDE RECORDS SUMMARY | 2025-07-28 06:55 | XMS_ITS | Encounter Summary ---
Author Organization [facility] Address [address] [facility] [place] [address] Care Team Providers Care Centrifugal Casting Machine Tender Name Role Phone LorenaChucho raya Primary Care Provider [phone] Laurie Mccormick FINAL CIGAR AND BOX EXAMINER Unavailable [phone] Reason for Visit * ReasonOnset WflaBykeyofcMwcufdk95/03/2025 Encounter Details DateTypeDepartmentCare Team (Latest Contact Info)Hwgdysgywop09/03/2025Telephone [facility] [address] [facility] [address] [address] [place] [place] [address] Stefanie Ceron LPN Results Social History Tobacco UseTypesPacks/DayYears UsedDateSmoking Tobacco: FormerCigarettesQuit: 01/31/2001Smokeless Tobacco: NeverAlcohol UseStandard Drinks/WeekCommentsYes2 (1 standard drink = 0.6 oz pure alcohol)Humiliation, Afraid, Rape, and Kick questionnaireAnswerDate RecordedWithin the last year, have you been afraid of your partner or ex-partner?No05/22/2023Within the last year, have you been humiliated or emotionally abused in other ways by your partner or ex-partner?No 05/22/2023Within the last year, have you been kicked, hit, slapped, or otherwise physically hurt by your partner or ex-partner?No05/22/2023Within the last year, have you been raped or forced to have any kind of sexual activity by your part ner or ex-partner?No05/22/2023Social Connection and Isolation PanelAnswerDate RecordedIn a typical week, how many times do you talk on the phone with family, friends, or neighbors?Once a week05/22/2023How often do you get together with friends or relatives?Once a week05/22/2023How often do you attend pentecostalism or yazidi services?1 to 4 times per year05/22/2023o you belong to any clubs or organizations such as pentecostalism groups, unions, fraternal or athletic groups, or school groups?Yes05/22/2023How often do you attend meetings of the clubs or organizations you belong to?1 to 4 times per year05/22/2023re you , , , , never , or living with a partner? 05/22/2023UDIT-CAnswerDate RecordedQ1: How often do you have a [...] food, housing, medical care, and heating?Not very hard 05/22/2023HQ-2AnswerDate RecordedPatient Health Questionnaire-2 Score0 07/08/2025[facility] [place] of Occupational Health - Occupational Stress QuestionnaireAnswerDate RecordedDo you feel stress - tense, restless, nervous, or anxious, or unable to sleep at night because yourmind is troubled all the time - these days?To some ketfgt0305/22/2023Exercise Vital SignAnswerDate Recorded On average, how many days per week do you engage in moderate to strenuous exercise (like a brisk walk)?5 days05/22/2023On average, how many minutes do you engage in exercise at this level?40 min05/22/2023Hunger Vital SignAnswerDate RecordedWithin the past 12 months, you worried that your food would run out before you got the money to buymore.Never true05/22/2023Within the past 12 months, the food you [...] 12 months, how many places have you lived?1 05/22/2023In the last 12 months, was there a time when you did not have a steady place to sleep or slept in ashelter (including now)?No05/22/2023Comments NoSex and Gender InformationValueDate RecordedSex Assigned at BirthFemale 05/09/2023 10:41 AM EDTLegal GojSxhzvj61/15/2023 7:17 PM EDTGender Identity Jjbymk2705/09/2023 10:41 AM EDTSexual TnesuqequjbGjocanwk66/23/2023 10:41 AM EDT documented as of this encounter Miscellaneous Notes * Telephone Encounter - Stefanie Ceron LPN - 2025 2:43 PM EST Patient made aware of results and direction. Appt scheduled. * Telephone Encounter - Stefanie Ceron LPN - 2025 2:41 PM EST NIURKA Clarke Natural Developer Can we schedule her a fu to review the holter monitor. 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 Would like to discuss this with her further and discuss treatment options. thanks documented in this encounter Plan of Treatment DateTypeDepartmentCare Team (Latest Contact Info)Dcrqpgsudiq83/25/2026 8:00 AM ESTOffice Visit [facility] CANDELARIA [address] [phone] Laurie Mccormick, NIURKA [address] [place] [address] documented as of this encounter Visit Diagnoses Not on filedocumented in this encounter Care Teams Team MemberRelationshipSpecialtyStart DateEnd Date Chucho Castle DO [address] [facility] [address] [place] [address] PCP - GeneralFamily Medicine01/23/23 Laurie Mccormick, NIURKA [address] [place] [address] PCP - Medical [place] [employer]05/18/2412documented as of this encounter
--- OUTSIDE RECORDS SUMMARY | 2025-07-28 06:56 | XMS_ITS | Clinical Summary ---
Author Organization [facility] Address [address] [place] [address] Care Team Providers Care Car Mechanic Name Role Phone LorenaChucho raya Primary Care Provider [phone] Laurie Mccormick NP Unavailable [phone] Allergies No known active allergies Medications MedicationSigDispense QuantityRefillsLast FilledStart DateEnd DateStatus pantoprazole (ProtoNix) 40 MG EC tablet Indications:Gastroesophageal reflux disease without esophagitisTake 1 tablet (40 mg) by mouth Daily Do not crush, chew, or split. 30 tablet 504/ctive atenolol (Tenormin) 25 MG tablet Indications:Symptomatic PVCs,PalpitationsTake 1 tablet (25 mg) by mouth Daily 30 tablet /6Active omeprazole (PriLOSEC) [address] capsule Indications:Gastroesophageal reflux disease without esophagitisTake 2 capsules (40 mg) by mouth Daily Do not crush or chew. 60 capsule Discontinued(Ineffective) Active Problems ProblemNoted DateDiagnosed EgfmYomksaw85/23/2023 Encounters DateTypeDepartmentCare YxaxVqwfcetyfcr33/05/2025 4:20 PM ESTOffice Visit NOMLinda Andres [facility] [address] [address] [facility] 230 [place] [address] Jillian Waller NP Symptomatic PVCs (Primary Dx); Palpitations; Lipid screening; Encounter for screening examination for impaired glucose regulation and diabetes mellitus; Thyroid disorder zlwuot2707/22/2025amboo flowsheet [facility] [address] [place] [address] Jillian Waller, RETIREMENT ACTUARY 07/22/20255695Yqeoto04/03/2025Telephone [facility] [address] [place] [place] [address] Stefanie Ceron LPN Pcegksl7307/17/2025bstract [facility] [address] [place] [place] [address] Jillian Waller, RETIREMENT ACTUARY 07/17/2025bstract [facility] [address] [place] [place] [address] Chucho Castle DO 07/17/2025Telephone [facility] [address] [place] [place] [address] Jillian Waller, RETIREMENT ACTUARY 07/15/2025Telephone [facility] [address] [place] [place] [address] Jillian Waller, RETIREMENT ACTUARY Medication Kgvqwsnm48/24/2025Telephone [facility] [address] [place] [place] [address] Jillian Waller, RETIREMENT ACTUARY Prior Xnqsozkdqyost14/22/2025 3:20 PM EDTOffice Visit [facility] [address] [place] [place] [address] Jillian Waller, RETIREMENT ACTUARY Gastroesophageal reflux disease without esophagitis (Primary Dx); Heart omrzgpngeaam94/22/2025amboo flowsheet [facility] [address] [place] [place] [address] Jillian Waller, RETIREMENT ACTUARY 07/08/2025Travelfrom Last 3 Months Immunizations ImmunizationAdministration DatesNext DueInfluenza, seasonal, injectable 1Pfizer Purple Cap SARS-CoV-2 Wfhatstpchz12/08/2021,07/14/2021Tdap 05/05/2023,07/16/2020 Family History Medical HistoryRelationNameCommentsCOPDFatherRonCancerMaternal GrandfatherMark DepressionMaternal GrandmotherHelenArthritisMotherTammyAsthmaMotherTammyCervical cancerMotherTammyRheum arthritisMotherTammyArthritisMother's BrotherRonArthritis Mother's SisterCherylDiabetesPaternal GrandmotherGayleDepressionSisterAmanda RelationNameStatusCommentsFatherRonMaternal GrandfatherMarkMaternal Grandmother HelenMotherTammyMother's BrotherRonMother's SisterCherylPaternal Grandmother GayleSisterAmanda Social History Tobacco UseTypesPacks/DayYears UsedDateSmoking Tobacco: FormerCigarettesQuit: [...] relatives?Once a week05/22/2023How often do you attend confucianist or yazidism services?1 to 4 times per year05/22/2023o you belong to any clubs or organizations such as confucianist groups, unions, fraternal or athletic groups, or school groups?Yes05/22/2023How often do you attend meetings of the clubs or organizations you belong to?1 to 4 times per year05/22/2023re you , , , , never , or living with a partner?Ukzjqib4705/22/2023UDIT-CAnswerDate RecordedQ1: How often do you have a [...] and heating?Not very hard05/22/2023HQ-2AnswerDate RecordedPatient Health Questionnaire-2 Ztvpq24009/21/2024[facility] [place] of Occupational Health - Occupational Stress QuestionnaireAnswerDate RecordedDo you feel stress - tense, restless, nervous, or anxious, or unable to sleep at night because your mind is troubled all the time - these days?To some shqugl4305/22/2023Exercise Vital SignAnswerDate RecordedOn average, how many days [...] sleep or slept in ashelter (including now)?No 3CommentsNoSex and Gender InformationValueDate RecordedSex Assigned at MqmgfBjwhkb54/23/2023 10:41 AM EDTLegal WkyAjwgwq12/15/2023 7:17 PM EDTGender DvigtcfsYiuury19/23/2023 10:41 AM EDTSexual OrientationStraight 05/09/2023 10:41 AM EDT Last Filed Vital Signs Vital SignReadingTime TakenCommentsBlood Baufjyat382/6807/22/2025 4:15 PM EST Gznwk228907/22/2025 4:15 PM HUNMlcbpyiwsgh63.5 ??C (97.7 ??F)07/22/2025 4:15 PM ESTRespiratory Rate--Oxygen Lqxvncodoo28%07/22/2025 4:15 PM ESTInhaled Oxygen Concentration--Quctzb72.7 kg (178 lb)07/22/2025 4:15 PM DPMRvfryr474.5 cm (5' 2 )07/22/2025 4:15 PM ESTBody Mass Index32.56109/21/2024 4:15 PM EST Plan of Treatment DateTypeDepartmentCare Team (Latest Contact Info)Hgsrdioolmd55/25/2026 8:00 AM ESTOffice Visit [facility] OBNICOLAS [address] [address] Laurie Mccormick NP [address] [place] [address] Health MaintenanceDue DateLast DoneCommentsHPV/Dpptrx7707/20/2013COVID-19 Vaccine ( season), 07/14/2021Influenza Vaccine (#1) 510/08/20218782Eobxjlpve90/17/77138212/01/2024, 10/02/2023ervical Cancer Sjewwqyqc61/19/2028Pap Smear802, 4Pneumococcal Vaccine: Pediatrics (0 to 5 Years) and At-Risk Patients (6 to 64 Years)Aged Out No longer eligible based on patient's age to complete this topic Procedures Procedure NamePriorityDate/TimeAssociated DiagnosisCommentsMM TOMOSYNTHESIS SCREENING BI12/01/2024 3:43 PM EDT THINPREP TIS PAP AND HPV MRNA E6/E7 WITH REFLEX TO HPV 16,18/16Wdiztfu83/19/2025 12:00 AM EST Screening for malignant neoplasm of cervix Encounter for gynecological examination without abnormal finding from Last 3 Months or Most Recently Relevant to Health Maintenance Results * MM TOMOSYNTHESIS SCREENING BI (12/01/2024 3:43 PM EDT)Anatomical Region LateralityModalityOtherSpecimen (Source)Anatomical Location / Laterality Collection Method / VolumeCollection TimeReceived Time12/01/2024 3:43 PM EDT Narrative 12/01/2024 3:44 PM EDT [facility] ?[address] ? [place] [address] ? Mammography Report ? Signed ? Patient: ISAELSONIDOPRETTY Mckeon ?MR#: [id number] ?? : 1985 ?Acct:[id number] ?? Age/Sex: 39 / F ?ADM Date: 03/17/25 ?? Loc: MAMMO ? Attending Dr: Laurie Mccormick BACKUP OPERATOR ? Ordering Physician: Laurie Mccormick APRN ?Results: ? Date of Service: 03/17/25 ?Follow Up: ? Procedure(s): MM tomosynthesis screening BI ?? Accession Number(s): [id number] ? cc: Laurie Mccormick APRN; Don CASTLE ? Patient Name: ? PRETTY ALANIZ ? MR#: [id number] ? : 1985 ? Exam Date: 12/01/2024 ?? Ordering Doctor: MRS. Laurie Mccormick RETIREMENT ACTUARY ? RADIOLOGY REPORT ? PROCEDURE: ? MM TOMOSYNTHESIS SCREENING BI ? COMPARISON: ? MM TOMOSYNTHESIS SCREENING BI, 10/01/2023. ? INDICATIONS: ? Screening ? Calculator Name ? NCI Breast Cancer Risk Assessment Tool ?? 5 Year Breast Cancer Risk ? 0.50% ?? Lifetime Breast Cancer Risk ? 9.00% ?? Personal Breast Cancer ?No ?? Personal Ovarian Cancer ? No ?? Treatments ? None ?? Family Cancers ? Mother with uterine cancer at age 55; Grandfather-maternal ?? with colon cancer at age 70. ? LOCATION: ? [facility] ? BREAST COMPOSITION: ? There are scattered areas of fibroglandular density. ? FINDINGS: ? DIAGNOSTIC CATEGORY 1--NEGATIVE. ? LEFT BREAST: ??No significant suspicious finding. ? RIGHT BREAST: ??No significant suspicious finding. ? RECOMMENDATIONS: ? ROUTINE MAMMOGRAM AND CLINICAL EVALUATION IN 12 MONTHS. ? PLEASE NOTE: ??A NORMAL MAMMOGRAM DOES NOT EXCLUDE THE POSSIBILITY OF BREAST ?? CANCER. ??A CLINICALLY SUSPICIOUS PALPABLE LUMP SHOULD BE BIOPSIED. ? Dictated by: Bubba Harrington DO on 12/01/2024 at 15:39 ? Approved by: Bubba Harrington DO on 12/01/2024 at 15:42 ? Dictated By: ?Bubba Harrington M.D. ? Signed By: ?12/01/24 1544 ? DD/ ? TD/TT: ? [facility]: Procedure Note Radiology, Radiologist, - 12/01/2024 [place] [address] Mammography Report Signed Patient: PRETTY ALANIZ SMR#: [id number] : 1985Acct:[id number] Age/Sex: 39 / FADM Date: 12/01/24 Loc: MAMMO Attending Dr: Laurie Mccormick APRN Ordering Physician: Laurie Mccormickults: Date of Service: 12/01/24Follow Up: Procedure(s): MM tomosynthesis screening BI Accession Number(s): [id number] cc: Laurie Mccormick APRN; Don CASTLE Patient Name: PRETTY ALANIZ MR#: [id number] : 1985 Exam Date: 12/01/2024 Ordering Doctor: MRS. Laurie Mccormick RETIREMENT ACTUARY RADIOLOGY REPORT PROCEDURE: MM TOMOSYNTHESIS SCREENING BI COMPARISON: MM TOMOSYNTHESIS SCREENING BI, 10/01/2023. INDICATIONS: Screening Calculator Name NCI Breast Cancer Risk Assessment Tool 5 Year Breast Cancer Risk 0.50% Lifetime Breast Cancer Risk 9.00% Personal Breast Cancer No Personal Ovarian Cancer No Treatments None Family Cancers Mother with uterine cancer at age 55;Grandfather-maternal with colon cancer at age 70. LOCATION: [facility] BREAST COMPOSITION: There are scattered areas of fibroglandulardensity. FINDINGS: DIAGNOSTIC CATEGORY 1--NEGATIVE. LEFT BREAST: No significant suspicious finding. RIGHT BREAST: No significant suspicious finding. RECOMMENDATIONS: ROUTINE MAMMOGRAM AND CLINICAL EVALUATION IN 12 MONTHS. PLEASE NOTE: A NORMAL MAMMOGRAM DOES NOT EXCLUDE THE POSSIBILITY OFBREAST CANCER. A CLINICALLY SUSPICIOUS PALPABLE LUMP SHOULD BE BIOPSIED. Dictated by: Bubba Harrington DO on 12/01/2024 at 15:39 Approved by: Bubba Harrington DO on 12/01/2024 at 15:42 Dictated By: Bubba Harrington M.D. Signed By:12/01/24 1544 DD/ 1543 TD/TT: [facility] Hand: Authorizing ProviderResult TypeResult StatusGeneric External Data Provider CLINISYNC IMAGINGFinal Result * THINPREP TIS PAP AND HPV MRNA E6/E7 WITH REFLEX TO HPV 16,18/45 (11/05/2024 12:00 AM EST)ComponentValueRef RangeTest MethodAnalysis TimePerformed At Pathologist SignatureCLINICAL INFORMATIONQUESTComment:None givenLMPQUEST Comment:None givenPREV. PAPQUESTComment:None givenPREV. BXQUESTComment:None givenSOURCEQUESTComment:None givenSTATEMENT OF ADEQUACYQUESTComment: Satisfactory for evaluation. Endocervical/transformation zone component present. INTERPRETATION/RESULTQUESTComment: Cytology Results: Negative for intraepithelial lesion or malignancy. COMMENTQUESTComment: This Pap test has been evaluated with computer assisted technology. CYTOTECHNOLOGISTQUESTComment: [facility], CT(ASCP) CT Screening Location: [facility] [address] ??[address] REVIEW CYTOTECHNOLOGISTQUESTComment: K, CT(ASCP) CT screening location: [facility] [address] [address]. (ALWAYS MESSAGE)QUESTComment: EXPLANATORY NOTE: The Pap is a screening test for cervical cancer. It is not a diagnostic test and is subject to false negative and false positive results. It is most reliable when a satisfactory sample, regularly obtained, is submitted with relevant clinical findings and history, and when the Pap result is evaluated along with historic and current clinical information. HPV MRNA E6/E7Not DetectedNot DetectedQUESTComment: Methodology: Plating Technician-Mediated Amplification This assay detects E6/E7 viral messenger RNA (mRNA) from 14 high-risk HPV types (16,18,31,33,35,39,45,51,52,56,58,59,66,68). Cervical sources are required for HPV testing. If a vaginal source from a patient who has had a total hysterectomy with removal of cervix was submitted, please contact the testing laboratory for alternative testing options. For additional information, please refer to http://education.Dot Medical/faq/WCY403g8 (This link if provided for information/ educational purposes only.) Specimen (Source)Anatomical Location / LateralityCollection Method / Volume Collection TimeReceived TimeSwabCervical swab / Hzyjwqm82/502/ 3:05 AM EST Narrative Resulting Agency Comment Performing Organization Information ?Site ID: [id number] ?Name: [facility] ?Address: [address] [place] [address], [address] [place] [phone] ?Director: Nilay Joel MD Authorizing ProviderResult TypeResult StatusStepmagaly Mccormick NPLAB CYTOLOGY ORDERABLESFinal ResultPerforming OrganizationAddressCity/State/ZIP CodePhone Number QUEST from Last 3 Months or Most Recently Relevant to Health Maintenance Insurance Care Teams Team MemberRelationshipSpecialtyStart DateEnd Date Chucho Castle DO [address] [facility] [address] [place] [address] PCP - GeneralFamily Medicine01/23/23 Laurie Mccormick NP [address] [place] [address] PCP - Medical [place] [employer]05/18/2412
--- OUTSIDE RECORDS SUMMARY | 2025-07-28 06:56 | XMS_ITS | Encounter Summary ---
Author Organization [facility] Address [address] [place] [address] Care Team Providers Care Electronic Test Technician Name Role Phone GiseleChucho conner Primary Care Provider [phone] Laurie Mccormick NP Unavailable [phone] Encounter Details DateTypeDepartmentCare Team (Latest Contact Info)Cgdczcxoope87/31/2025Telephone [facility] [address] [place] [address] [place] [address] Jillian Waller NP [address] [place] [address] [place] [address] Social History Tobacco UseTypesPacks/DayYears UsedDateSmoking Tobacco: FormerCigarettesQuit: [...] relatives?Once a week05/22/2023How often do you attend buddhism or scientology services?1 to 4 times per year05/22/2023o you belong to any clubs or organizations such as buddhism groups, unions, fraternal or athletic groups, or [...] very hard 05/22/2023HQ-2AnswerDate RecordedPatient Health Questionnaire-2 Score0 07/08/2025[facility] [place] of Occupational Health - Occupational Stress QuestionnaireAnswerDate RecordedDo you feel stress - tense, restless, nervous, or anxious, or unable to sleep at night because yourmind is troubled all the time - these days?To some fwbyuw3005/22/2023Exercise Vital SignAnswerDate Recorded On average, how many [...] Assigned at BirthFemale 05/09/2023 10:41 AM EDTLegal DedUnrmsf15/15/2023 7:17 PM EDTGender Identity Kkqzov1405/09/2023 10:41 AM EDTSexual NygbcjqdsfjLisklklq09/23/2023 10:41 AM EDT documented as of this encounter Miscellaneous Notes * Telephone Encounter - Jillian Waller NP - 07/17/2025 1:13 PM EDT Noted, will watch for results to come in * Telephone Encounter - Kadi Ariza MA - 07/17/2025 11:49 AM EDT Spoke to pt on the phone and she states she turned the monitor in on Sunday and she contacted them to find out when they were going to read the results. Pt states she was informed that the results will be read when they have time. Pt states that she called again today and they states they were going to have them read the results and send the to Jillian Waller. Pt states she has been changing her dietand taking her meds * Telephone Encounter - Sugey Bryant - 07/17/2025 11:05 AM EDT [facility] called because patient has been calling and is scared that there is something wrong and wants to know if Jillian has received any results from the holter monitor. She is asking forus to contact patient because she needs for the provider to help with possibly giving her some information to calm her fears. Please advise. documented in this encounter Plan of Treatment DateTypeDepartmentCare Team (Latest Contact Info)Qpzxchwgabo88/25/2026 8:00 AM ESTOffice Visit [facility]S Isaac CANDELARIA [address] [phone] Laurie Mccormick NP [address] [place] [address] documented as of this encounter Visit Diagnoses Not on filedocumented in this encounter Care Teams Team MemberRelationshipSpecialtyStart DateEnd Date Chucho Castle DO [address] [facility] [address] [place] [address] PCP - GeneralFamily Medicine01/23/23 Laurie Mccormick NP [address] [place] [address] PCP - Medical [place] [employer]05/18/2412documented as of this encounter
--- OUTSIDE RECORDS SUMMARY | 2025-07-28 06:56 | XMS_ITS | Encounter Summary ---
Author Organization [facility] Address [address] [facility] [place] [address] Care Team Providers Care Osteopathic Neurologist Name Role Phone GiseleChucho conner Primary Care Provider [phone] Laurie Mccormick NP Unavailable [phone] Reason for Visit * ReasonOnset DateCommentsMedication Pffzpckj69/29/2025 Encounter Details DateTypeDepartmentCare Team (Latest Contact Info)Lwdhrjafmfe48/29/2025Telephone [facility] [address] [place] [phone] Kim Winters NP [address] [facility] [address] [place] [address] Medication Question Social History Tobacco UseTypesPacks/DayYears UsedDateSmoking Tobacco: FormerCigarettesQuit: [...] relatives?Once a week05/22/2023How often do you attend yazidism or taoism services?1 to 4 times per year05/22/2023o you belong to any clubs or organizations such as yazidism groups, unions, fraBlast Ramp or athletic groups, or school groups?Yes05/22/2023How often [...] very hard 05/22/2023HQ-2AnswerDate RecordedPatient Health Questionnaire-2 Score0 07/08/2025[facility] [place] of Occupational Health - Occupational Stress QuestionnaireAnswerDate RecordedDo you feel stress - tense, restless, nervous, or anxious, or unable to sleep at night because yourmind is troubled all the time - these days?To some xwzdut5905/22/2023Exercise Vital SignAnswerDate Recorded On average, how many [...] steady place to sleep or slept in [place] (including now)?No05/22/2023Comments NoSex and Gender InformationValueDate RecordedSex Assigned at BirthFemale 05/09/2023 10:41 AM EDTLegal DfrXetqbv11/15/2023 7:17 PM EDTGender Identity Rqzvev8705/09/2023 10:41 AM EDTSexual YqhcwvcnxpdXxptuyub89/23/2023 10:41 AM EDT documented as of this encounter Miscellaneous Notes * Telephone Encounter - Tangela Gilliam MA - 07/15/2025 4:24 PM EDT Spoke with pt about this and she voiced understanding * Addendum Note - Kim Winters NP - 07/15/2025 3:57 PM EDTAddended by: KIM WINTERS on: 07/15/2025 03:57 PM Modules accepted: Orders * Telephone Encounter - Kim Winters NP - 07/15/2025 3:54 PM EDT I can send an alt medication if she would like. Advise on smaller meals/portions, avoid trigger foods. Upright for 30-60 minutes after food intake. Alt meds sent to [facility] * Telephone Encounter - Sandie Gordon - 07/15/2025 3:11 PM EDT Pt called started taking prilosec 07/08 BID. Pt reports she is still having heartburn just about every time she eats. She would like to know if she should continue with the prilosec or try something else. Please call with recommendation. documented in this encounter Plan of Treatment DateTypeDepartmentCare Team (Latest Contact Info)Avbiwcsguqx59/25/2026 8:00 AM ESTOffice Visit [facility] [address] [address] Laurie Mccormick NP [address] [place] [address] documented as of this encounter Visit Diagnoses Diagnosis Gastroesophageal reflux disease without esophagitis- Primary Esophageal reflux documented in this encounter Care Teams Team MemberRelationshipSpecialtyStart DateEnd Date Chucho Castle DO [address] [facility] 230 [place] [address] PCP - GeneralFamily Medicine01/23/23 Laurie Mccormick NP [address] [place] [address] PCP - Medical [place] [employer]05/18/2412documented as of this encounter
--- OUTSIDE RECORDS SUMMARY | 2025-07-28 06:56 | XMS_ITS | Encounter Summary ---
Author Organization [facility] Address [address] [place] [address] Care Team Providers Care Medical Collections Specialist Name Role Phone Chucho Castle DO Primary Care Provider [phone] Laurie Mccormick PERSONNEL RECRUITER Unavailable [phone] Encounter Details DateTypeDepartmentCare Team (Latest Contact Info)Rsbkzfganub69/31/2025Abstract [facility] [address] [place] [phone] Chucho Castle DO [address] [place] [address] Social History Tobacco UseTypesPacks/DayYears UsedDateSmoking Tobacco: FormerCigarettesQuit: [...] relatives?Once a week05/22/2023How often do you attend alevism or sikhism services?1 to 4 times per year05/22/2023o you belong to any clubs or organizations such as alevism groups, unions, fraternal or athletic groups, or [...] very hard 05/22/2023HQ-2AnswerDate RecordedPatient Health Questionnaire-2 Score0 07/08/2025[facility] [place] of Occupational Health - Occupational Stress QuestionnaireAnswerDate RecordedDo you feel stress - tense, restless, nervous, or anxious, or unable to sleep at night because yourmind is troubled all the time - these days?To some ymains2505/22/2023Exercise Vital SignAnswerDate Recorded On average, how many [...] Assigned at BirthFemale 05/09/2023 10:41 AM EDTLegal TnqLaldyg44/15/2023 7:17 PM EDTGender Identity Jeoofc8505/09/2023 10:41 AM EDTSexual UetllrngmvyQyzgvtfo61/23/2023 10:41 AM EDT documented as of this encounter Plan of Treatment DateTypeDepartmentCare Team (Latest Contact Info)Lbohrzifqrt99/25/2026 8:00 AM ESTOffice Visit [facility] [address] [phone] Laurie Mccormick NP [address] [place] [address] documented as of this encounter Visit Diagnoses Not on filedocumented in this encounter Care Teams Team MemberRelationshipSpecialtyStart DateEnd Date Chucho Castle DO [address] [facility] 230 [place] [address] PCP - GeneralFamily Medicine01/23/23 Laurie Mccormick NP [address] [place] [address] PCP - Medical [place] [employer]05/18/2412documented as of this encounter
--- OUTSIDE RECORDS SUMMARY | 2025-07-28 06:56 | XMS_ITS | Patient Health Record ---
Author Organization [facility] Address [address] [place] [address] Care Team Providers Care Concrete Technician Name Role Phone Dr. Chucho Castle Primary Care Provider Unavailable Reason For Referral No Information Plan Of Treatment No Information Insurance Providers Payer Name Payer Address Payer Phone Subscriber Number Group Number Insured Name Patient Relationship to Insured Coverage Start Date Coverage End Date [facility] [address] [place] [address] [id number] Sahara Pascual Self - patient is the insured Medical (General) History Medical History History ICD Code None Surgical History Surgery Date(Month/Year) C section Hospitalization History Reason Date(Month/Year) surgeries
--- OUTSIDE RECORDS SUMMARY | 2025-07-28 06:56 | XMS_ITS | Encounter Summary ---
Author Organization [facility] Address [address] [place] [address] Care Team Providers Care Propeller Engineer Name Role Phone Giseledalila Chucho June DO Primary Care Provider [phone] Moo Lewis DO Unavailable [phone] Laurie Mccormick SOFTWARE ENGINEER DEVELOPER Unavailable [phone] Encounter Details DateTypeDepartmentCare Team (Latest Contact Info)Kimlgbgbzgk82/16/2024Clinisync Result Encounter [facility] External Department Unsolicited Provider, Generic External Data Social History Tobacco UseTypesPacks/DayYears UsedDateSmoking Tobacco: FormerCigarettesQuit: [...] relatives?Once a week05/22/2023How often do you attend shinto or voodoo services?1 to 4 times per year05/22/2023o you belong to any clubs or organizations such as shinto groups, unions, fraternal or athletic groups, or [...] very hard 05/22/2023HQ-2AnswerDate RecordedPatient Health Questionnaire-2 Score0 07/08/2025[facility] [place] of Occupational Health - Occupational Stress QuestionnaireAnswerDate RecordedDo you feel stress - tense, restless, nervous, or anxious, or unable to sleep at night because yourmind is troubled all the time - these days?To some nkdejz2105/22/2023Exercise Vital SignAnswerDate Recorded On average, how many [...] steady place to sleep or slept in [place] (including now)?No05/22/2023Comments NoSex and Gender InformationValueDate RecordedSex Assigned at BirthFemale 05/09/2023 10:41 AM EDTLegal YmzNaiivd71/15/2023 7:17 PM EDTGender Identity Ccotvr3305/09/2023 10:41 AM EDTSexual HtpimcojpytAsnwfizq31/23/2023 10:41 AM EDT documented as of this encounter Functional Status * AUDIT-C ScoreAnswerDate of RodvhfqufmWpujgv304/19/2025 11:53 AM Kadi Castorena LPN * QuestionAnswerDate of AssessmentAuthorQ1: How often do you have a drink containing alcohol?2-4 times a month11/05/2024 11:53 AM Kadi Castorena LPN Q2: How many drinks containing alcohol do you have on a typical day when you are drinking?1 or 11:53 AM Kadi Castorena LPNQ3: How often do you have six or more drinks on one occasion?Never11/05/2024 11:53 AM Kadi Francis LPN * Over the past 2 weeks, how often have you been bothered by any of the following problems?QuestionAnswerDate of AssessmentAuthorLittle interest or pleasure in doing thingsNot at all07/08/2025 3:42 PM Stefanie Hart LPN Feeling down, depressed, or hopelessNot at all07/08/2025 3:42 PM Stefanie Hart LPNPatient Health Questionnaire-2 Viqpg135 3:42 PM Stefanie Hart LPN documented as of this encounter Plan of Treatment DateTypeDepartmentCare Team (Latest Contact Info)Bkhubpbkdfi63/25/2026 8:00 AM ESTOffice Visit [facility] [address] [phone] Laurie Mccormick NP 282 [place] [address] documented as of this encounter Procedures Procedure NamePriorityDate/TimeAssociated DiagnosisCommentsMM TOMOSYNTHESIS SCREENING BI10/02/2023 9:21 AM EST documented in this encounter Results * MM TOMOSYNTHESIS SCREENING (10/02/2023 9:21 AM EST)Anatomical Region LateralityModalityOtherSpecimen (Source)Anatomical Location / Laterality Collection Method / VolumeCollection TimeReceived Time10/02/2023 9:21 AM EST Narrative 10/02/2023 9:22 AM EST [facility] ?[address] ? [place] [address] ? Mammography Report ? Signed ? Patient: PRETTY ALANIZ ?MR#: [id number] ?? : 1985 ?Acct:[id number] ?? Age/Sex: 38 / F ?ADM Date: 10/01/23 ?? Loc: MAMMO ? Attending Dr: Non-Staff Physician M.D. ? Ordering Physician: Physician,Non-Staff M.D. ?Results: ? Date of Service: 10/01/23 ?Follow Up: ? Procedure(s): MM tomosynthesis screening BI ?? Accession Number(s): [id number] ? cc: Don CASTLE ; Physician,Non-Staff Jeana ? Patient Name: ? PRETTY ALANIZ ? MR#: [id number] ? : 1985 ? Exam Date: 10/01/2023 ?? Ordering Doctor: Non-Staff Physician ? RADIOLOGY REPORT ? PROCEDURE: ? MM TOMOSYNTHESIS SCREENING BI ? COMPARISON: ? None. ? INDICATIONS: ? Screening ? Calculator Name [...] at age 68. ? LOCATION: ? [facility] ? BREAST COMPOSITION: ? Scattered areas fibroglandular density. ? FINDINGS: ? DIAGNOSTIC CATEGORY 1--NEGATIVE. ? Scattered benign-appearing calcifications are present. ? RIGHT BREAST: ??No significant suspicious finding. ? LEFT BREAST: ??No significant suspicious finding. ? RECOMMENDATIONS: ? ROUTINE MAMMOGRAM AND CLINICAL EVALUATION IN 12 MONTHS. ? PLEASE NOTE: ??A NORMAL MAMMOGRAM DOES NOT EXCLUDE THE POSSIBILITY OF BREAST ?? CANCER. ??A CLINICALLY SUSPICIOUS PALPABLE LUMP SHOULD BE BIOPSIED. ? Dictated by: Jason Swan MD on 10/02/2023 at 09:19 ? Approved by: Jason Swan MD on 10/02/2023 at 09:21 ? Dictated By: ?Jason Swan M.D. ? Signed By: ?10/02/23921 ? DD/ 0 ? TD/TT: ? Chemist Inorganic: Procedure Note Radiology, Radiologist, - 10/02/2023 [place] [address] Mammography Report Signed Patient: PRETTY ALANIZ SMR#: [id number] : 1985Acct:[id number] Age/Sex: 38 / FADM Date: 10/01/23 Loc: MAMMO Attending Dr: Non-Staff Physician Jeana Ordering Physician: PhysicianElfegoStaff JeanaResults: Date of Service: 10/01/23Follow Up: Procedure(s): MM tomosynthesis screening BI Accession Number(s): [id number] cc: Don CASTLE ; PhysicianAntonino M.D. Patient Name: PRETTY ALANIZ MR#: [id number] : 1985 Exam Date: 10/01/2023 Ordering Doctor: [...] colon cancer at age 68. LOCATION: [facility] BREAST COMPOSITION: Scattered areas fibroglandular density. FINDINGS: [...] 09:21 Dictated By: Jason Swan M.D. Signed By:10/02/2322 DD/ 0 TD/TT: Chemist Inorganic: Authorizing ProviderResult TypeResult StatusGeneric External Data Provider CLINISYNC IMAGINGFinal Result documented in this encounter Visit Diagnoses Not on filedocumented in this encounter Care Teams Team MemberRelationshipSpecialtyStart DateEnd Date Chucho Castle DO [address] [place] [address] PCP - GeneralFaorly Medicine01/23/23 Moo Lewis DO [address] [place] [address] PCP - Medical [place] [employer] Laurie Mccormick NP [address] [place] [address] PCP - Medical [place] [employer]05/18/2412documented as of this encounter
--- OUTSIDE RECORDS SUMMARY | 2025-07-28 06:56 | XMS_ITS | Encounter Summary ---
Author Organization [facility] Address [address] [place] [address] Care Team Providers Care Recreation Facility Manager Name Role Phone GiseleChucho conner Primary Care Provider [phone] Laurie Mccormick STEM CRUSHER Unavailable [phone] Encounter Details DateTypeDepartmentCare Team (Latest Contact Info)Gselrzvtbup98/05/2025Travel Social History Tobacco UseTypesPacks/DayYears UsedDateSmoking Tobacco: FormerCigarettesQuit: [...] relatives?Once a week05/22/2023How often do you attend pentecostal or hinduism services?1 to 4 times per year05/22/2023o you belong to any clubs or organizations such as pentecostal groups, unions, fraternal or athletic groups, or [...] very hard 05/22/2023HQ-2AnswerDate RecordedPatient Health Questionnaire-2 Score0 07/22/2025[facility] [place] of Occupational Health - Occupational Stress QuestionnaireAnswerDate RecordedDo you feel stress - tense, restless, nervous, or anxious, or unable to sleep at night because yourmind is troubled all the time - these days?To some rtfxzo5505/22/2023Exercise Vital SignAnswerDate Recorded On average, how many [...] Assigned at BirthFemale 05/09/2023 10:41 AM EDTLegal IxeHkujwb94/15/2023 7:17 PM EDTGender Identity Czqwvc4305/09/2023 10:41 AM EDTSexual CkezmdjilcdSzuaetuc15/23/2023 10:41 AM EDT documented as of this encounter Functional Status * Over the past 2 weeks, how often have you been bothered by any of the following problems?QuestionAnswerDate of AssessmentAuthorLittle interest or pleasure in doing thingsNot at all07/22/2025 4:20 PM Tangela Smith MA Feeling down, depressed, or hopelessNot at all07/22/2025 4:20 PM Tangela Smith MAPatient Health Questionnaire-2 Pjvdz44509/21/2024 4:20 PM Tangela Smith MA documented as of this encounter Plan of Treatment DateTypeDepartmentCare Team (Latest Contact Info)Hoqcgmuybur25/25/2026 8:00 AM ESTOffice Visit [facility] [address] [phone] Laurie Mccormick NP 282 [place] [address] documented as of this encounter Visit Diagnoses Not on filedocumented in this encounter Care Teams Team MemberRelationshipSpecialtyStart DateEnd Date Chucho Castle DO [address] [place] [address] PCP - GeneralFamily Medicine01/23/23 Laurie Mccormick NP [address] [place] [address] PCP - Medical [place] [employer]05/18/2412documented as of this encounter
--- OUTSIDE RECORDS SUMMARY | 2025-07-28 06:56 | XMS_ITS | Encounter Summary ---
Author Organization [facility] Address [address] [place] [address] Care Team Providers Care Cheese Maker Name Role Phone GiseleChucho conner Primary Care Provider [phone] Laurie Mccormick NP Unavailable [phone] Encounter Details DateTypeDepartmentCare Team (Latest Contact Info)Pgbfcbopjkx37/31/2025Abstract [facility] [address] [place] [phone] Jillian Waller NP [address] [place] [address] Social History Tobacco UseTypesPacks/DayYears UsedDateSmoking Tobacco: FormerCigarettesQuit: [...] relatives?Once a week05/22/2023How often do you attend judaism or mormonism services?1 to 4 times per year05/22/2023o you belong to any clubs or organizations such as judaism groups, unions, fraternal or athletic groups, or [...] very hard 05/22/2023HQ-2AnswerDate RecordedPatient Health Questionnaire-2 Score0 07/08/2025[facility] [place] of Occupational Health - Occupational Stress QuestionnaireAnswerDate RecordedDo you feel stress - tense, restless, nervous, or anxious, or unable to sleep at night because yourmind is troubled all the time - these days?To some trsztb7105/22/2023Exercise Vital SignAnswerDate Recorded On average, how many [...] Assigned at BirthFemale 05/09/2023 10:41 AM EDTLegal IeqIyyfon90/15/2023 7:17 PM EDTGender Identity Sldzsu7805/09/2023 10:41 AM EDTSexual TagjoubxjdcNgohefkg25/23/2023 10:41 AM EDT documented as of this encounter Plan of Treatment DateTypeDepartmentCare Team (Latest Contact Info)Bwpqaxjsdar73/25/2026 8:00 AM ESTOffice Visit [facility] [address] [phone] Laurie Mccormick NP [address] [place] [address] documented as of this encounter Visit Diagnoses Not on filedocumented in this encounter Care Teams Team MemberRelationshipSpecialtyStart DateEnd Date Chucho Castle DO [address] [facility] 230 [place] [address] PCP - GeneralFamily Medicine01/23/23 Laurie Mccormick NP 282 [place] [address] PCP - Medical [place] [employer]05/18/2412documented as of this encounter
--- OUTSIDE RECORDS SUMMARY | 2025-07-28 06:56 | XMS_ITS | Encounter Summary ---
Author Organization [facility] Address [address] [place] [address] Care Team Providers Care Filter Cloth Maker Name Role Phone GiseleChucho conner Primary Care Provider [phone] Laurie Mccormick NP Unavailable Encounter Details DateTypeDepartmentCare Team (Latest Contact Info)Tiskeptpady48/05/2025amboo flowsheet [facility] [address] [place] [phone] Jillian Waller NP [address] [place] [address] Social History Tobacco UseTypesPacks/DayYears UsedDateSmoking Tobacco: FormerCigarettesQuit: [...] relatives?Once a week05/22/2023How often do you attend sikhism or roman catholic services?1 to 4 times per year05/22/2023o you belong to any clubs or organizations such as sikhism groups, unions, fraRibbon or athletic groups, or school groups?Yes05/22/2023How often [...] very hard 05/22/2023HQ-2AnswerDate RecordedPatient Health Questionnaire-2 Score0 07/22/2025[facility] [place] of Occupational Health - Occupational Stress QuestionnaireAnswerDate RecordedDo you feel stress - tense, restless, nervous, or anxious, or unable to sleep at night because yourmind is troubled all the time - these days?To some vkyhrd9305/22/2023Exercise Vital SignAnswerDate Recorded On average, how many [...] Assigned at BirthFemale 05/09/2023 10:41 AM EDTLegal SemXapoup32/15/2023 7:17 PM EDTGender Identity Yzylvg4305/09/2023 10:41 AM EDTSexual BzftleqnwppEyakbyvb93/23/2023 10:41 AM EDT documented as of this encounter Plan of Treatment DateTypeDepartmentCare Team (Latest Contact Info)Iqenseiykdx05/25/2026 8:00 AM ESTOffice Visit [facility] [address] [phone] Laurie Mccormick NP [address] [place] [address] documented as of this encounter Visit Diagnoses Not on filedocumented in this encounter Care Teams Team MemberRelationshipSpecialtyStart DateEnd Date Chucho Castle DO [address] [facility] [address] [place] [address] PCP - GeneralFamily Medicine01/23/23 Laurie Mccormick NP [address] [place] [address] PCP - Medical [place] [employer]05/18/2412documented as of this encounter
[2025-07-28 07:23] LABS: Hematocrit 40.4 % (36.0-48.0); Hemoglobin 13.7 g/dL (12.0-16.0); Immature Granulocytes Abs Auto 0.02 10^3/uL (0.00-0.03); Immature Granulocytes Pct Auto 0.3 % (0.0-0.5); Lymphocytes Absolute Auto 1.4 10^3/uL (1.2-3.8); Mean Corpuscular HGB Conc 33.9 g/dL (29.9-35.2); Mean Corpuscular Hemoglobin 31.5 pg (26.7-34.0); Mean Corpuscular Volume 92.9 fL (81.0-99.0); Platelet Count 246 10^3/uL (150-450); Red Blood Count 4.35 10^6/uL (4.20-5.40); White Blood Count 6.2 10^3/uL (4.0-11.0)
[2025-07-28 08:14] LABS: Alanine Aminotransferase 22 U/L (14-59); Albumin Globulin Ratio 0.9; Albumin Level 3.4 g/dL (3.4-5.0); Alkaline Phosphatase 73 U/L (46-116); Anion Gap 11.7; Aspartate Amino Transferase 12 U/L (15-37); Blood Urea Nitrogen 14.0 mg/dL (7.0-18.0); Calcium 8.9 mg/dL (8.5-10.1); Carbon Dioxide 29.0 mmol/L (21.0-32.0); Chloride 107 mmol/L (98-107); Cholesterol 181 mg/dL (<=200); Estimated GFR (African America >60 (>=60 mL/min/1.73m^2); Estimated GFR (Non-African Ame >60 (>=60 mL/min/1.73m^2); Globulin 3.7 g/dL; Glucose 99 mg/dL (74-106); HDL Cholesterol 51 mg/dL (40-60); Potassium 4.7 mmol/L (3.5-5.1); Sodium 143 mmol/L (136-145); Thyroid Stimulating Hormone 2.251 uIU/mL (0.358-3.740); Total Protein 7.1 g/dL (6.4-8.2); Triglycerides 46 mg/dL (<=150); VLDL CHOLESTEROL 9.2 mg/dL
== END 2025-07-28 06:50 | disposition home or self-care (01) ==
LOC: LAB 06:53
PROVIDERS: PCP Family Medicine
DX: I49.3 Ventricular premature depolarization (principal); R00.2 Palpitations; Z13.220 Encounter for screening for lipoid disorders; Z13.1 Encounter for screening for diabetes mellitus; Z13.29 Encounter for screening for other suspected endocrine disorder
CPT/HCPCS: 36415; 80053; 80061; 84439; 84443; 85025